=== PATIENT | male | born 1965 | race Caucasian/White ===

== ENCOUNTER 2022-09-21 11:12 | Outpatient (REF) | payer OTHER, SELFPAY ==
[2022-09-21 13:56] LABS: Hematocrit 43.4 % (42.0-52.0); Hemoglobin 15.4 g/dl (14.0-18.0); Lymphocytes Absolute Auto 2.3 X10*3/uL (1.2-4.9); Lymphocytes Percent Auto 65.3 % (20-40); MANUAL DIFF FLAG SCAN; Mean Corpuscular HGB Conc 35.5 g/dl (31.0-36.0); Mean Corpuscular Hemoglobin 34.4 pg (27.0-33.0); Mean Corpuscular Volume 96.9 fL (80.0-98.0); Mean Platelet Volume 10.5 fL (9.4-12.4); Monocytes Absolute Auto 0.5 X10*3/uL (0.1-1.2); Monocytes Percent Auto 13.8 % (2-11); Neutrophils Absolute Auto 0.7 x10*3/uL (2.0-8.3); Neutrophils Percent Auto 20.9 % (45-73); Platelet Count 181 X10*3/uL (160-400); Red Blood Count 4.48 X10*6/uL (4.60-5.80); Red Cell Distribution Width 12.1 % (11.0-16.0); SCAN SMEAR FLAG 1; White Blood Count 3.5 X10*3/uL (4.8-10.8)
[2022-09-21 14:18] LABS: SLIDE REVIEW VERIFIED
[2022-09-21 14:22] LABS: Alanine Aminotransferase 39 U/L (0-40); Albumin Level 4.5 g/dL (3.5-5.0); Alkaline Phosphatase 53 U/L (39-117); Anion Gap 15 (12-20); Aspartate Amino Transferase 31 U/L (5-37); Bilirubin Total 1.4 mg/dL (0.0-1.0); Blood Urea Nitrogen 11 mg/dL (9-16); Calcium 9.6 mg/dL (8.4-10.2); Carbon Dioxide 25 mmol/L (22-29); Chloride 105 mmol/L (96-108); Cholesterol 309 mg/dL; Estimated Glomerular Filt Rate > 60; Glucose Fasting 104 mg/dL (60-99); HDL Cholesterol 69 mg/dL; LDL Cholesterol Calculated 211 mg/dl; Potassium 5.1 mmol/L (3.3-5.1); Sodium 140 mmol/L (135-145); Total Protein 6.7 g/dL (6.5-8.0); Triglycerides 148 mg/dL
[2022-09-21 14:38] LABS: Free T4 (Free Thyroxine) 1.06 ng/dL (0.71-1.85); Prostate Specific Antigen 1.32 ng/mL (<0.05-4.0); Thyroid Stimulating Hormone 1.11 uIU/mL (0.32-4.0)
== END 2022-09-21 11:13 | disposition home or self-care (01) ==
LOC: HO.HMGCLDS 11:12
PROVIDERS: PCP Internal Medicine; Visit Provider Internal Medicine
DX: Z00.00 Encounter for general adult medical examination without abnormal findings (principal); Z12.5 Encounter for screening for malignant neoplasm of prostate
CPT/HCPCS: 36415; 80053; 80061; 84153; 84439; 84443; 85025

== ENCOUNTER → 2022-09-27 07:56 | Outpatient (BNVA) | payer OTHER, SELFPAY | PROVIDERS: PCP Internal Medicine; Referring Provider Internal Medicine; Visit Provider Internal Medicine | DX: I49.3 Ventricular premature depolarization (principal) | CPT/HCPCS: 93005 ==

== ENCOUNTER → 2022-10-11 07:45 | Outpatient (REF) | payer OTHER, SELFPAY ==
--- NOTE | ~2022-10-11 | NM_ITS ---
EXERCISE MYOCARDIAL PERFUSION STUDY INDICATION: PVCs, assess for coronary disease and ischemia TECHNIQUE: The patient was brought in for an exercise perfusion study on 10/11/2022. Patient performed exercise as per Talat protocol and was injected 35 mCi of sestamibi once target heart rate was achieved. Images were obtained using the SPECT gamma camera interlaced with the gating device. Images were obtained in supine position. Resting perfusion study was performed on 10/13/2022. Patient was administered 35 mCi of sestamibi intravenously at rest. Images were then obtained in supine position. Total DLP 104mGy-cm. Images were processed with the software and compared side to side in short axis, horizontal long axis and vertical long axis views. FINDINGS: Raw images were reviewed. The stress perfusion study showed diminished tracer uptake in the basal part of inferior, inferior septal wall. There is improvement with CT attenuation correction suggestive of diaphragmatic attenuation artifact. The gated study shows normal LV systolic function with calculated LVEF of 64%. LV cavity is normal in size. The gated study shows normal wall thickening and contraction of segments. Resting study shows diminished tracer uptake in the basal part of inferior, inferior septal wall. There is improvement with CT attenuation correction suggestive of diaphragmatic attenuation artifact. Gating at rest reveals normal wall motion with ejection fraction at 51%. The findings are consistent with fixed basal inferior defect, probably from diaphragmatic attenuation artifact. No reversible defects. CO/NM cardiolite stress test IMPRESSION: 1. Myocardial perfusion imaging study shows no clear evidence of any ischemia or infarction. Likely normal myocardial perfusion. 2. Gated LVEF is 64% during stress and 51% during rest. 3. Transient ischemic dilatation not present. EKG component of the test reported separately.
--- NOTE | 2022-10-11 07:50 | CA_ITS ---
Transthoracic Echocardiogram Patient (Last, First, Middle): Heriberto Knox, Gender: Male Date of : 1965 Age: 56 Procedure Date: 10/11/2022 Procedure Type: Transthoracic Echocardiogram Location: OP Height: 177.8 cm Weight: 97.52 kg BSA: 2.15 m2 Heart Rate: 95 bpm BP: 148 / 80 mmHg Counterintelligence Agent: SB Referring MD: Manny Shaw MD Specialized Developer: Vignesh Khanna MD Symptoms: I49.3 - Ventricular premature depolarization Study Quality: Adequate ECG Rhythm: Bigeminy Conclusions: - 1. Normal LV systolic function with grade 1 diastolic dysfunction 2. Mildly dilated left atrium 3. Normal cardiac valvular Dopplers 4. Mildly dilated ascending aorta at 3.9 cm 5. Normal RV systolic pressure 6. No gross pericardial effusion Findings Left Ventricle Normal left ventricular size, thickness, and systolic function. The visually estimated ejection fraction is between 60-65%. There is no evidence of regional wall motion abnormalities. Spectral Doppler is indicative of an impaired relaxation filling pattern. E/E prime ratio is <8, consistent with normal filling pressures. Evidence suggests grade I (mild) diastolic dysfunction. Right Ventricle Normal right ventricular cavity size and systolic function. Atria The left atrium is mildly dilated. There is no evidence of interatrial shunt. The right atrium is normal in size. Aortic Valve The aortic valve structure and function is likely normal. There is no aortic valve stenosis. There is no aortic valve regurgitation. Mitral Valve There is mild anterior and posterior mitral leaflet thickening. There is trace mitral valve regurgitation. There is no mitral valve stenosis. Pulmonic Valve The pulmonic valve was not well visualized. Tricuspid Valve Normal tricuspid valve structure. There is trace tricuspid valve regurgitation. The right ventricular systolic pressure is normal. The right ventricular systolic pressure is 28 mmHg. Normal right atrial pressure. There is no evidence of pulmonary hypertension. Great Vessels The pulmonary artery was not well visualized. There is mild dilatation of the ascending aorta measuring 3.90 cm. Venous The inferior vena cava is normal in size and collapses greater than 50% with inspiration. Pericardium/Pleural There is no evidence of pericardial effusion. Prior Study Comparison No prior study available for comparison. Measurements 2D Linear Measurements IVSd: 1.11 0.6-0.9/0.6-1.0 cm LVIDd: 6.09 3.9-5.3/4.2-5.9 cm LVIDd Index: 2.83 2.4-3.2/2.2-3.1 cm/m2 LVIDs: 3.78 2.0-3.6 cm LVPWd: 0.93 0.7-1.1 cm LA Diam: 5.20 2.7-3.8/3.0-4.0 cm LAIDs Index: 2.42 1.5-2.3 cm/m2 LV Mass: 324.17 67-162/88-224 g LV Mass Index: 150.78 43-95/49-115 g/m2 LVOT Diam: 2.50 3.0+(-)1.3 cm 2D Systolic Function EF 4C: 63.20 >55% EF 2C: 66.90 >55% EF BiP: 66.60 >55% Mitral Valve MV Pk E: 0.56 MV PK A: 0.53 MV Decel Time: 266.00 E/A: 1.10 E'Lateral: 12.00 E'Medial: 5.87 E/E' Med: 9.50 E/E' Lat: 4.60 PHT: 78.00 MVA PHT: 2.82 Decel Comal: 2.09 Aortic Valve AoV Pk Toni: 1.95 AoV Pk Grad: 15.00 GABRIELA: 4.61 LVOT LVOT Pk Toni: 1.83 LVOT Mn Toni: 1.09 LVOT VTI: 0.34 LVOT Pk Grad: 13.00 LVOT Mn Grad: 6.00 LVOT Diam: 2.50 LVOT Area: 4.91 Diastolic Function MV Pk E: 0.56 MV Pk A: 0.53 E/A: 1.10 E'Medial: 5.87 E/E' Med: 9.50 E' Laterial: 12.00 E/E' Lat: 4.60 Right Ventricle TAPSE (mm): 29.50 TVS' Toni: 18.00 Tricuspid Valve TR Pk Toni: 2.51 TR Pk Grad: 25.00 RA Press: 3.00 RVSP: 28.00 Great Vessels Aorta Sinus of Valsalva: 4.10 2.0-3.5 cm Ao Asc: 3.90 2.1-3.4 cm Pulmonary Valve PV Pk Toni: 1.70 Peak PV Grad: 12.00 Updated in Other Vendor System with Status of Final Vignesh Khanna MD electronically signed on 10/11/2022 11:44:03 AM with status of Final
--- NOTE | 2022-10-11 07:50 | CA_ITS ---
Acquisition Time: 2022-10-11 08:40:07 Total Exercise Time: 00:06:38 Test Indications: ABN EKG Medications: SEE CHART Protocol: VINH Max HR: 136 BPM 82% of Pred: 165 BPM Max BP: 280/084 mmHG Max Work Load: 7.9 METS Exercise stress test using Vinh protocol total of 6 min 38 sec, METS 7.80, TAPHR up to 82 %. Pt tolerated well, denies any SOB or CP. EKG with frequent PVC's no ischemic changes seen, nuclear images to follow. Hypertensive response to exercise. Test reviewed with Dr. Khanna. Referred By: Manny Shaw Overread By: Kassi Baird NP
== END ==
LOC: HO.CARD 07:45
PROVIDERS: PCP Internal Medicine; Visit Provider Internal Medicine
DX: I49.3 Ventricular premature depolarization (principal)
CPT/HCPCS: 78452; 93017; 93306; A9500

== ENCOUNTER → 2022-10-19 06:51 | Outpatient (REF) | payer OTHER, SELFPAY ==
--- NOTE | 2022-10-19 06:54 | HM_ITS ---
Conclusion: 1. Patient was monitored for total period of 2 days and 22 hours 2. Baseline was normal sinus rhythm with average heart of 69 beats per minute 3. No significant pauses noted 4. Total of 59,949 PVCs accounting for 22% total beats account for frequent PVCs 5. Total of 16 nonsustained ventricular tachycardia episodes noted with longest lasting 10 beats consistent with accelerated idioventricular rhythm 6. No patient reported symptoms MTDD
== END ==
LOC: HO.CARD 06:51
PROVIDERS: PCP Internal Medicine; Visit Provider Internal Medicine
DX: I49.3 Ventricular premature depolarization (principal)
CPT/HCPCS: 93242

== ENCOUNTER → 2022-11-02 10:39 | Outpatient (REF) | payer OTHER, SELFPAY | LOC: HO.SL 10:39 | PROVIDERS: Visit Provider Internal Medicine | DX: G47.33 Obstructive sleep apnea (adult) (pediatric) (principal); I49.3 Ventricular premature depolarization | CPT/HCPCS: 95806 ==

== ENCOUNTER → 2022-12-06 08:24 | Outpatient (BNVA) | payer OTHER, SELFPAY | PROVIDERS: PCP Internal Medicine; Referring Provider Internal Medicine; Visit Provider Internal Medicine | DX: Z13.89 Encounter for screening for other disorder (principal) ==

== ENCOUNTER 2023-04-13 09:45 | Outpatient (AMB) | payer OTHER, SELFPAY ==
[2023-04-13 10:02] VITALS: BP 162/84; PULSE 70; O2SAT 94; BMI 28.8
--- NOTE | 2023-04-13 10:02 | MHC.OFFVIS ---
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 He has been moderately obese for the past few years. Has had loud snoring at night, enough to disturb his , more so in the past 1 year. He used to sleep , throughout the night but waking up unrefreshed and tired during the daytime. He also has had cardiac arrhythmias in the past year and the sleep study was actually ordered by his carbon electrodes supervisor Dr. Shaw. The home-based sleep study on 11/02/2022 showed mom moderate to severe obstructive sleep apnea, And patient was supposed to go on CPAP therapy. Since then he has try to lose weight and is has successfully lost about 20 lbs. In the meantime since last month he had accidental injury to the right knee, with torn ligament. He underwent knee surgery, postoperatively had DVT in right lower extremity. He is now on anti coagulation, still on right knee immobilizer. His earlier appointment to see me was postpone because of the above events related to his right lower extremity. He claims that his sleep is somewhat better since he lost weight, and according to his his snoring has decreased. He is being treated for hypertension and hyperlipidemia. And as noted above he has been on anticoagulation recently for DVT right lower extremity. HE IS PAST SMOKER FOR ABOUT 15 YEARS BUT QUIT IN 2016. ON LICENSE OF [facility] Medical History (Updated 04/13/23 @ 12:13 by Gia Mauricio MD) Essential hypertension Hyperlipidemia, unspecified Obesity SANTO (obstructive sleep apnea) Retrognathia Surgical History No pertinent past surgical history Family History Mother No problems noted. Father ALS (amyotrophic lateral sclerosis) Social History Alcohol intake: current Alcohol intake frequency: a few times a week Alcohol type: beer and wine Patient Tobacco Use Status: Former Tobacco user Quit Date: 2015 Years Smoked: 15 +/- Review of Systems Const All systems reviewed & are unremarkable except as noted in HPI and below Reports snoring (Loud) Eyes Reports no additional complaints ENT Reports no additional complaints Card Denies chest pain and Reports irregular heart rhythm Resp Reports no additional complaints and Reports snoring (Loud) Reports no additional complaints Musc Reports other (Right lower extremity in brace, swollen) Skin/Breast Reports system reviewed and no additional complaints, except as documented Neuro Reports no additional complaints Psych Reports no additional complaints Endo Reports no additional complaints Yaya/Lymph Reports no additional complaints Aller/Immun Reports no additional complaints Physical Exam Vital Signs: Last Vital Signs Pulse 70 04/13/23 10:02 BP 162/84 H 04/13/23 10:02 Pulse Ox 94 04/13/23 10:02 Oxygen Delivery Method Room Air 04/13/23 10:02 BMI result Body Mass Index 28.8 AT PRESENT HE IS ONLY SLIGHTLY OBESE. Const General: healthy appearing, comfortable, no acute distress, alert and awake Orientation/consciousness: patient oriented x3 HEENT Other: RETROGANTHIA OF THE LOWER JAW IS NOTED Head: Yes normal to inspection General nose exam: No nasal polyps present and No nasal discharge present Face and sinus: Yes sinuses nontender Mouth: oropharynx abnormals (MODERATELY NARROW AND CROWDED, MALLAMPATI CLASS 3) Throat: Yes posterior oropharynx normal Eyes General: appearance normal, both eyes and all related structures Neck Neck: Yes normal visual inspection, Yes no lymphadenopathy, Yes trachea midline and Yes no JVD Thyroid: Thyroid normal Chest Chest palpation & inspection: normal inspection of the chest, normal palpation of entire chest wall and no tenderness Resp Effort & Inspection: normal respiratory effort Auscultation: clear to auscultation bilaterally, no crackles and no wheezes Cardio Palpation: normal PMI Rate: regular rate Rhythm: regular rhythm Heart sounds: no gallops and no murmurs Peripheral pulses: Peripheral pulses 2+ throughout GI Palpation (GI): Soft to palpation, nontender, No hepatosplenomegaly present and no masses Auscultation: normal bowel sounds Back/Spine/Pelvis Thoracic/Lumbar Spine: thoracic and lumbar spine normal to inspection Skin General skin exam: no rashes or lesions noted Neuro General: patient oriented x3 and no focal motor deficits Cranial nerves: Yes CN's II-XII intact bilaterally Extrem Other: RIGHT LOWER EXTREMITY IS MODERATELY SWOLLEN AND HE HAS KNEE IMMOBILIZER ON, General: Yes normal to inspection and Yes no clubbing, cyanosis or edema Psych Appearance: grossly normal and well kempt Speech and movement: Normal speech and movement present Results Reviewed Results Reviewed: RESULTS OF HOME-BASED SLEEP STUDY ON 11/02/2022 REVIEWED. TOTAL SLEEP TIME AHI 20.3 SUPINE POSITION AHI 35.7 LATERAL POSITION AHI 8.7 SNORING FOR 9.3% OF THE SLEEP TIME. O2 SAT BELOW 88% FOR 13 MINUTES Assessment & Plan Assessment & Plan (1) Obesity: Comment: THIS GENTLEMAN DID HAVE MODERATE OBESITY BUT HE HAS SUCCESSFULLY LOST ABOUT 20 LB OF WEIGHT IN THE LAST 4 MONTHS. 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 THIS IS A STRONG CONTRIBUTING FACTOR FOR HIS OBSTRUCTIVE SLEEP APNEA. EVEN THOUGH HE HAS LOST WEIGHT I I THINK HE IS GOING TO CONTINUE TO SLEEP APNEA BECAUSE OF THIS DEFORMITY . Code(s): M26.19 - Other specified anomalies of jaw-cranial base relationship (3) SANTO (obstructive sleep apnea): Comment: PER SLEEP STUDY HE DOES HAVE EVIDENCE OF MODERATE TO SEVERE OBSTRUCTIVE SLEEP APNEA. EVEN THOUGH HE HAS LOST SAYS SOME WEIGHT, I THINK HE IS EXPECTED TO CONTINUE HAVING SLEEP APNEA, THOUGH THE SEVERITY MAY HAVE DECREASED. TREATMENT OPTIONS DISCUSSED . 1- HE COULD LOSE MORE WEIGHT, AND THEN WE REPEAT A HOME-BASED SLEEP STUDY TO SEE IF HE STILL HAS SIGNIFICANT RESIDUAL SLEEP APNEA OR NOT. 2- I THINK THAT HE WILL CONTINUE TO HAVE SOME DEGREE OF SLEEP APNEA BECAUSE OF RETROGANTHIS OF THE LOWER JAW, AND IN VIEW OF HIS HISTORY OF CARDIAC ARRHYTHMIAS, HE IS BETTER OF STARTING ON THE CPAP, AND WHEN HE LOSES MORE WEIGHT WE CAN ALWAYS DO ANOTHER HOME-BASED SLEEP STUDY. AFTER FULL DISCUSSION, HE IS AGREEABLE TO START ON CPAP THERAPY. CPAP WITH AUTO PAP MODE AND PRESSURE SETTING 6-16 CM IS ORDERED, MAY START WITH NASAL INTERFACE BUT HE MAY NEED A FULL FACE INTERFACE. HE IS INSTRUCTED TO USE THE HUMIDIFICATION WELL. WILL BE SEEN BACK IN 2 MONTHS TO MONITOR HIS COMPLIANCE AND BENEFITS. Code(s): G47.33 - Obstructive sleep apnea (adult) (pediatric) Coding Level of Care Code New Pt Level 4 (65864) Diagnoses Obesity E66.9 Retrognathia M26.19 SANTO (obstructive sleep apnea) G47.33
== END 2023-04-13 10:45 | disposition home or self-care (01) ==
PROVIDERS: PCP Internal Medicine; Visit Provider Internal Medicine
DX: E66.9 Obesity, unspecified (principal); M26.19 Other specified anomalies of jaw-cranial base relationship; G47.33 Obstructive sleep apnea (adult) (pediatric)
CPT/HCPCS: 99204

== ENCOUNTER → 2023-04-13 09:45 | Outpatient (BNVA) | payer OTHER, SELFPAY | PROVIDERS: PCP Internal Medicine; Visit Provider Internal Medicine ==

== ENCOUNTER → 2023-05-25 12:45 | Outpatient (REF) | payer OTHER, SELFPAY ==
--- NOTE | 2023-05-25 12:48 | HM_ITS ---
* Total monitoring time about 3 days. * Underlying rhythm is sinus. Average ventricular rate 70/Min. Range 49 to 108/Min. * Frequent ventricular ectopy with a burden of 7%. Rare couplets, bigeminy, trigeminy. No significant runs. * No significant pauses or AV blocks. * No patient markers or events in diary. MTDD
== END ==
LOC: HO.CARD 12:45
PROVIDERS: PCP Internal Medicine; Visit Provider Internal Medicine
DX: I49.3 Ventricular premature depolarization (principal)
CPT/HCPCS: 93242

== ENCOUNTER → 2023-05-25 12:48 | Outpatient (BNV) | payer OTHER, SELFPAY | PROVIDERS: PCP Internal Medicine; Visit Provider Internal Medicine | DX: I47.10 Supraventricular tachycardia, unspecified (principal) | CPT/HCPCS: 93244 ==

== ENCOUNTER 2023-06-14 08:00 | Outpatient (AMB) | payer OTHER, SELFPAY ==
[2023-06-14 08:25] VITALS: BP 142/90; PULSE 92; BMI 31.6
--- NOTE | 2023-06-14 08:25 | A.OFFVIS_ITS ---
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 Intake Note: 6 month follow up Before School Required: No Accompanied by: Self / Same As Patient Allergies No Known Allergies Allergy (Verified 06/14/23 08:26) Medication List - Last Reconciled 06/14/23 by Manny Shaw MD apixaban (Eliquis) 5 mg PO BID atorvastatin 10 mg PO BEDTIME diltiazem HCl 120 mg PO DAILY omeprazole 20 mg PO DAILY HPI HPI Comments History of Present Illness Details Heriberto returns for follow-up regarding PVCs. Overall, does not really have any clear-cut symptoms. Generally feeling okay. No angina or shortness of breath or palpitations. He got diagnosed with obstructive sleep apnea but not able to use CPAP as he states it is very inconvenient. [facility] Medical History (Updated 06/14/23 @ 08:51 by Manny Shaw MD) Retrognathia Obesity SANTO (obstructive sleep apnea) Hyperlipidemia, unspecified Essential hypertension Surgical History (Updated 06/14/23 @ 08:27 by Tamar Triplett) H/O right knee surgery Family History Mother No problems noted. Father ALS (amyotrophic lateral sclerosis) Social History Alcohol intake: current Alcohol intake frequency: a few times a week Alcohol type: beer and wine Patient Tobacco Use Status: Former Tobacco user Quit Date: 2015 Years Smoked: 15 +/- Review of Systems Const Denies weakness ENT Denies dizziness Card Denies chest pain, Denies chest pain with activity, Denies syncope, Denies rapid heart rate, Denies pedal edema, Denies edema, Denies leg edema, Denies lightheadedness, Denies palpitations, Denies dyspnea, Denies dyspnea on exertion and Denies orthopnea Resp Denies cough, Denies dyspnea and Denies dyspnea on exertion GI Denies hematochezia and Denies change in stool character Musc Denies abnormal gait, Denies muscle cramps, Denies muscle weakness, Denies numbness, Denies radiating pain into limb and Denies tingling Neuro Denies abnormal gait, Denies dizziness, Denies syncope, Denies numbness, Denies tingling and Denies weakness Endo Denies palpitations Physical Exam Vital Signs: Last Vital Signs Pulse 92 06/14/23 08:25 BP 142/90 H 06/14/23 08:25 BMI result Body Mass Index 31.6 Const General: comfortable and no acute distress Orientation/consciousness: patient oriented x3 HEENT Other: Unremarkable Head: Yes normal to inspection Neck Neck: Yes normal visual inspection Chest Chest palpation & inspection: normal inspection of the chest Resp Auscultation: clear to auscultation bilaterally Cardio Palpation: normal PMI Heart sounds: S1 normal heart sound present, S2 normal heart sound present, no gallops, no murmurs and no rubs GI Palpation (GI): Soft to palpation Back/Spine/Pelvis Other: unremarkable Skin General skin exam: no rashes or lesions noted Neuro General: patient oriented x3 Extrem General: Yes normal to inspection Psych Mental Status: mental status grossly normal Assessment & Plan Assessment & Plan (1) PVC (premature ventricular contraction): Code(s): I49.3 - Ventricular premature depolarization Plan: EKG with PVCs. Echocardiogram with preserved LVEF. Holter shows underlying sinus rhythm with an average rate of 69/Min. Frequent PVCs with a burden of 22%. Brief runs of NSVT. Most recently repeated and shows a PVC burden of 7%. In the stress test, reached 7.9 Mets. No cardiac symptoms. PVCs still noted, but some improvement. Perfusion component was unremarkable. Etiology for this could be some combination of weight as well as obstructive sleep apnea. Continue to lose weight and try the CPAP mask again. Continue diltiazem. (2) Essential hypertension: Code(s): I10 - Essential (primary) hypertension Plan: Borderline blood pressures. Losing weight would hopefully help. (3) SANTO (obstructive sleep apnea): Code(s): G47.33 - Obstructive sleep apnea (adult) (pediatric) Plan: Home sleep study shows moderately severe obstructive sleep apnea. He states he tried the CPAP mask but finds it very inconvenient. This is probably contributing a lot to the PVCs. Discussed. Coding Level of Care Code Est Pt Level 4 (47718) Diagnoses PVC (premature ventricular contraction) I49.3 Essential hypertension I10 SANTO (obstructive sleep apnea) G47.33
== END 2023-06-14 08:46 | disposition home or self-care (01) ==
PROVIDERS: Visit Provider Internal Medicine
DX: I49.3 Ventricular premature depolarization (principal); I10 Essential (primary) hypertension; G47.33 Obstructive sleep apnea (adult) (pediatric)
CPT/HCPCS: 99214

== ENCOUNTER → 2023-06-14 08:00 | Outpatient (BNVA) | payer OTHER, SELFPAY | PROVIDERS: Visit Provider Internal Medicine ==

== ENCOUNTER 2023-06-22 06:26 | Outpatient (REF) | payer OTHER, SELFPAY ==
[2023-06-22 11:33] LABS: Eosinophils Percent Auto 0.7 % (0-4); Hematocrit 44.2 % (42.0-52.0); Hemoglobin 15.1 g/dl (14.0-18.0); Lymphocytes Percent Auto 69.9 % (20-40); MANUAL DIFF FLAG SCAN; Mean Corpuscular HGB Conc 34.2 g/dl (31.0-36.0); Mean Corpuscular Hemoglobin 34.6 pg (27.0-33.0); Mean Corpuscular Volume 101.1 fL (80.0-98.0); Mean Platelet Volume 10.1 fL (9.4-12.4); Monocytes Absolute Auto 0.5 X10*3/uL (0.1-1.2); Monocytes Percent Auto 17.6 % (2-11); Neutrophils Absolute Auto 0.3 x10*3/uL (2.0-8.3); Neutrophils Percent Auto 11.8 % (45-73); Platelet Count 186 X10*3/uL (160-400); Red Blood Count 4.37 X10*6/uL (4.60-5.80); Red Cell Distribution Width 11.8 % (11.0-16.0); SCAN SMEAR FLAG 1; White Blood Count 2.8 X10*3/uL (4.8-10.8)
[2023-06-22 11:54] LABS: SLIDE REVIEW VERIFIED
[2023-06-22 12:01] LABS: Alanine Aminotransferase 169 U/L (0-40); Albumin Level 4.4 g/dL (3.5-5.0); Alkaline Phosphatase 78 U/L (39-117); Anion Gap 15 (12-20); Aspartate Amino Transferase 113 U/L (5-37); Bilirubin Total 0.7 mg/dL (0.0-1.0); Blood Urea Nitrogen 8 mg/dL (9-16); Calcium 9.3 mg/dL (8.4-10.2); Carbon Dioxide 24 mmol/L (22-29); Chloride 108 mmol/L (96-108); Estimated Glomerular Filt Rate > 60; Glucose Random 99 mg/dL (60-115); Sodium 143 mmol/L (135-145); Total Protein 7.1 g/dL (6.5-8.0)
== END 2023-06-22 06:27 | disposition home or self-care (01) ==
LOC: HO.HMGCLDS 06:26
PROVIDERS: PCP Internal Medicine; Visit Provider Internal Medicine
DX: I10 Essential (primary) hypertension (principal); K21.9 Gastro-esophageal reflux disease without esophagitis; E78.00 Pure hypercholesterolemia, unspecified; Z86.718 Personal history of other venous thrombosis and embolism
CPT/HCPCS: 36415; 80053; 85025

== ENCOUNTER 2023-08-03 10:02 | Outpatient (AMB) | payer OTHER, SELFPAY ==
--- NOTE | 2023-08-03 10:13 | A.OFFVIS_ITS ---
Intake Vital Signs 08/03/23 10:14 Height 5 ft 9 in Weight 213 lb BMI 31.5 BP 130/82 Blood Pressure Location Lt brachial Position Sitting Pulse 77 Pulse Source Pulse Oximeter Pulse Oximetry (%) 98 Oxygen Delivery Method Room Air Intake Visit Reasons: Obstructive sleep apnea Intake Note: pt is here for follow up and states he returned cpap, maintaining weight loss, snoring is less only once in a great while. Molder Foam Rubber Required: No Allergies No Known Allergies Allergy (Verified 08/03/23 10:22) Medication List - Last Reconciled 08/03/23 by Gia Mauricio MD apixaban (Eliquis) 5 mg PO BID atorvastatin 10 mg PO BEDTIME diltiazem HCl 120 mg PO DAILY omeprazole 20 mg PO DAILY Do you need a note to return to daycare/school/sports/work: No HPI Obstructive sleep apnea HPI Details 57 YEARS OLD GENTLEMAN WITH HISTORY OF O BSTRUCTIVE SLEEP APNEA, SECONDARY TO MILD OBESITY AND ALSO CONTRIBUTED BYRETROGANTHIA OF THE LOWER JAW. AFTER RECENT SLEEP STUDY HE WAS PROVIDED WITH THIS CPAP DEVICE. HE USED IT ONLY FOR 1 NIGHT AND THEN DECIDED NOT TO USE. HE JUST DID NOT FEEL COMFORTABLE WITH THE MASK AND COULD NOT SLEEP. NOW HE IS TRYING TO SLEEP IN LATERAL POSITION , AND LOSING SOME WEIGHT. HE CLAIMS THAT HE SLEEPS WELL AT LEAST FOR 6-7 HOURS EVERY NIGHT. HE WAKES UP REFRESHED AND DOES NOT HAVE ANY DAYTIME SLEEPINESS. HE IS DETERMINED TO TREAT HIMSELF WITH CONSERVATIVE MEASURES. [facility] Medical History Retrognathia Obesity SANTO (obstructive sleep apnea) Hyperlipidemia, unspecified Essential hypertension Surgical History H/O right knee surgery Family History Mother No problems noted. Father ALS (amyotrophic lateral sclerosis) Social History Alcohol intake: current Alcohol intake frequency: a few times a week Alcohol type: beer and wine Patient Tobacco Use Status: Former Tobacco user Quit Date: 2015 Years Smoked: 15 +/- Non Cigarette Tobacco use Quit date or years: 2005 Review of Systems Const All systems reviewed & are unremarkable except as noted in HPI and below Reports snoring (Loud) Eyes Reports no additional complaints ENT Reports no additional complaints Card Denies chest pain and Reports irregular heart rhythm Resp Reports no additional complaints and Reports snoring (Loud) Reports no additional complaints Musc Reports other (Right lower extremity in brace, swollen) Skin/Breast Reports system reviewed and no additional complaints, except as documented Neuro Reports no additional complaints Psych Reports no additional complaints Endo Reports no additional complaints Yaya/Lymph Reports no additional complaints Aller/Immun Reports no additional complaints Physical Exam Vital Signs: Last Vital Signs Pulse 77 08/03/23 10:14 BP 130/82 08/03/23 10:14 Pulse Ox 98 08/03/23 10:14 Oxygen Delivery Method Room Air 08/03/23 10:14 BMI result Body Mass Index 31.5 AT PRESENT HE IS ONLY SLIGHTLY OBESE. Const General: healthy appearing, comfortable, no acute distress, alert and awake Orientation/consciousness: patient oriented x3 HEENT Other: RETROGANTHIA OF THE LOWER JAW IS NOTED Head: Yes normal to inspection General nose exam: No nasal polyps present and No nasal discharge present Face and sinus: Yes sinuses nontender Mouth: oropharynx abnormals (MODERATELY NARROW AND CROWDED, MALLAMPATI CLASS 3) Throat: Yes posterior oropharynx normal Eyes General: appearance normal, both eyes and all related structures Neck Neck: Yes normal visual inspection, Yes no lymphadenopathy, Yes trachea midline and Yes no JVD Thyroid: Thyroid normal Chest Chest palpation & inspection: normal inspection of the chest, normal palpation of entire chest wall and no tenderness Resp Effort & Inspection: normal respiratory effort Auscultation: clear to auscultation bilaterally, no crackles and no wheezes Cardio Palpation: normal PMI Rate: regular rate Rhythm: regular rhythm Heart sounds: no gallops and no murmurs Peripheral pulses: Peripheral pulses 2+ throughout GI Palpation (GI): Soft to palpation, nontender, No hepatosplenomegaly present and no masses Auscultation: normal bowel sounds Back/Spine/Pelvis Thoracic/Lumbar Spine: thoracic and lumbar spine normal to inspection Skin General skin exam: no rashes or lesions noted Neuro General: patient oriented x3 and no focal motor deficits Cranial nerves: Yes CN's II-XII intact bilaterally Extrem Other: RIGHT LOWER EXTREMITY IS MODERATELY SWOLLEN AND HE HAS KNEE IMMOBILIZER ON, General: Yes normal to inspection and Yes no clubbing, cyanosis or edema Psych Appearance: grossly normal and well kempt Speech and movement: Normal speech and movement present Results Reviewed Results Reviewed: HE TRY TO USE CPAP BUT USED IT ONLY FOR 1 NIGHT AND THEN DECIDED NOT TO USE. 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 THIS IS A STRONG CONTRIBUTING FACTOR FOR HIS OBSTRUCTIVE SLEEP APNEA. Code(s): M26.19 - Other specified anomalies of jaw-cranial base relationship Plan: DISCUSSED WITH THE PATIENT AND HE IS FULLY AWARE OF THIS DEFECT. (2) Obesity: Comment: THIS GENTLEMAN DID HAVE MODERATE OBESITY BUT HE HAS SUCCESSFULLY LOST ABOUT 20 LB OF WEIGHT IN THE LAST 4-6 MONTHS. Code(s): E66.9 - Obesity, unspecified Plan: ENCOURAGED TO LOSE ANOTHER 10 LB OF WEIGHT (3) SANTO (obstructive sleep apnea): Comment: PATIENT DOES HAVE MODERATE DEGREE OF OBSTRUCTIVE SLEEP APNEA. HE IS NOT ABLE TO AND ALSO NOT INTERESTED IN USING CPAP. CURRENTLY WITH CONSERVATIVE MEASURES INCLUDING SLEEPING IN LATERAL POSITION AND ALSO SOME WEIGHT LOSS, HE IS DOING WELL. Code(s): G47.33 - Obstructive sleep apnea (adult) (pediatric) Plan: ADVISED TO CONTINUE LOSING A FEW LB OF WEIGHT AT A TIME, AND ALWAYS SLEEP IN LATERAL POSITION. WILL CHECK HIM ON A YEARLY BASIS, AND IF SYMPTOMS GET ANY WORSE THEN WILL CONSIDER ALTERNATE MODES OF TREATMENT. PATIENT IS WELL EDUCATED. Coding Level of Care Code Est Pt Level 3 (15109) Diagnoses Retrognathia M26.19 Obesity E66.9 SANTO (obstructive sleep apnea) G47.33
[2023-08-03 10:14] VITALS: BP 130/82; PULSE 77; O2SAT 98; BMI 31.5
== END 2023-08-03 11:23 | disposition home or self-care (01) ==
PROVIDERS: PCP Internal Medicine; Visit Provider Internal Medicine
DX: M26.19 Other specified anomalies of jaw-cranial base relationship (principal); E66.9 Obesity, unspecified; G47.33 Obstructive sleep apnea (adult) (pediatric)
CPT/HCPCS: 99213

== ENCOUNTER → 2023-08-03 10:02 | Outpatient (BNVA) | payer OTHER, SELFPAY | PROVIDERS: PCP Internal Medicine; Visit Provider Internal Medicine ==

== ENCOUNTER 2024-06-05 07:49 | Outpatient (AMB) | payer OTHER, SELFPAY ==
--- NOTE | 2024-06-05 08:30 | MHC.OFFVIS ---
Vital Signs 06/05/24 08:31 Height 5 ft 9 in Weight 214 lb 11.684 oz BMI 31.7 BP 160/82 H Blood Pressure Location Lt brachial Position Sitting Pulse 72 Pulse Source Monitor Intake Visit Reasons: 1 yr f/up Robotic Technician Required: No Accompanied by: Self / Same As Patient Allergies No Known Allergies Allergy (Verified 08/03/23 10:22) Medication List - Last Reconciled 06/05/24 by Manny Shaw MD apixaban (Eliquis) 5 mg PO BID atorvastatin 10 mg PO BEDTIME diltiazem HCl CD 120 mg PO DAILY omeprazole 20 mg PO DAILY HPI Comments Details: Heriberto returns for follow-up regarding PVCs. Overall, he states he feels fine. No cardiac symptoms. No angina or in fact anything along those lines. With regard to social habits, he drinks daily and he believes it is excessive. Several beers almost daily. Also has obstructive sleep apnea but does not use CPAP mask. [facility] Medical History Retrognathia Obesity SANTO (obstructive sleep apnea) Hyperlipidemia, unspecified Essential hypertension Surgical History H/O right knee surgery Family History Mother No problems noted. Father ALS (amyotrophic lateral sclerosis) Social History Alcohol intake: current Alcohol intake frequency: a few times a week Alcohol type: beer and wine Patient Tobacco Use Status: Former Tobacco user Years Smoked: 15 +/- Review of Systems Const Denies chills, Denies fatigue, Denies fever(s), Denies frequent falls, Denies weakness, Denies weight gain and Denies weight loss ENT Denies dizziness Card Denies chest pain, Denies leg edema, Denies lightheadedness, Denies palpitations, Denies dyspnea and Denies dyspnea on exertion Resp Denies cough, Denies dyspnea and Denies dyspnea on exertion GI Denies hematochezia Musc Denies abnormal gait, Denies muscle weakness, Denies numbness, Denies radiating pain into limb and Denies tingling Neuro Denies abnormal gait, Denies dizziness, Denies frequent falls, Denies numbness, Denies tingling and Denies weakness Endo Denies fatigue and Denies palpitations Physical Exam Vital Signs: Last Vital Signs Pulse 72 06/05/24 08:31 BP 160/82 H 06/05/24 08:31 BMI result Body Mass Index 31.7 Const General: comfortable and no acute distress Orientation/consciousness: patient oriented x3 HEENT Other: Unremarkable Head: Yes normal to inspection Neck Neck: Yes normal visual inspection Chest Chest palpation & inspection: normal inspection of the chest Resp Auscultation: clear to auscultation bilaterally Cardio Palpation: normal PMI Heart sounds: S1 normal heart sound present, S2 normal heart sound present, no gallops, no murmurs and no rubs GI Palpation (GI): Soft to palpation Back/Spine/Pelvis Other: unremarkable Skin General skin exam: no rashes or lesions noted Neuro General: patient oriented x3 Extrem General: Yes normal to inspection Psych Mental Status: mental status grossly normal Office Procedures EKG Details: EKG with underlying sinus rhythm at 72/Min; rightward axis; no significant ST-T changes; [place]. [address]-[id number], Complete Assessment & Plan Assessment & Plan (1) PVC (premature ventricular contraction): Code(s): I49.3 - Ventricular premature depolarization Category: Medical Plan: EKG with PVCs. Echocardiogram with preserved LVEF. Holter shows underlying sinus rhythm with an average rate of 69/Min. Frequent PVCs with a burden of 22%. Brief runs of NSVT. Repeated and shows a PVC burden of 7%. In the stress test, reached 7.9 Mets. No cardiac symptoms. PVCs still noted, but some improvement. Perfusion component was unremarkable. Suspect this from some combination of weight, alcohol excess, obstructive sleep apnea. He remains on diltiazem. No changes. (2) Essential hypertension: Code(s): I10 - Essential (primary) hypertension Category: Medical Plan: Blood pressure is high today. However, he does smell of alcohol and additionally he states that home blood pressures only the 130s and he checks some few times a week. Hence no changes. (3) SANTO (obstructive sleep apnea): Code(s): G47.33 - Obstructive sleep apnea (adult) (pediatric) Category: Medical Plan: Home sleep study shows moderately severe obstructive sleep apnea. He states he cannot tolerate CPAP mask. (4) Alcohol abuse: Code(s): F10.10 - Alcohol abuse, uncomplicated Category: Social Hx Plan: Drinks daily. Last year, LFTs were abnormal. We can recheck his labs. Counseled about dangers from excessive alcohol use and he understands. Orders: Orders Comprehensive Met. Panel Today I49.3 - Ventricular premature depolarization Complete Blood Count no Diff Today I49.3 - Ventricular premature depolarization Coding Level of Care Code Est Pt Level 4 (62336) Diagnoses PVC (premature ventricular contraction) I49.3 Essential hypertension I10 SANTO (obstructive sleep apnea) G47.33 Alcohol abuse F10.10 CPT Codes EKG - CPT: 06514-Lfoizeglzgnaptate, Complete ([id number])
[2024-06-05 08:31] VITALS: BP 160/82; PULSE 72; BMI 31.7
== END 2024-06-05 08:56 | disposition home or self-care (01) ==
PROVIDERS: PCP Internal Medicine; Visit Provider Internal Medicine
DX: I49.3 Ventricular premature depolarization (principal); I10 Essential (primary) hypertension; G47.33 Obstructive sleep apnea (adult) (pediatric); F10.10 Alcohol abuse, uncomplicated
CPT/HCPCS: 93010; 99214

== ENCOUNTER → 2024-06-05 07:49 | Outpatient (BNVA) | payer OTHER, SELFPAY | PROVIDERS: PCP Internal Medicine; Visit Provider Internal Medicine | DX: I49.3 Ventricular premature depolarization (principal); I10 Essential (primary) hypertension; G47.33 Obstructive sleep apnea (adult) (pediatric); F10.10 Alcohol abuse, uncomplicated | CPT/HCPCS: 93005 ==

== ENCOUNTER 2024-08-28 06:27 | Day surgery (SDC) | payer OTHER, SELFPAY ==
--- OUTSIDE RECORDS SUMMARY | 2024-08-09 10:53 | XMS_ITS | Patient Health Record ---
Author Organization [facility] Address [address] [place] [address] Care Team Providers Care Film Reader Name Role Phone Greg Tomlin MD Primary Care Provider Gibson Bella Jr Unavailable [phone] ALLERGIES No Known Allergies REASON FOR REFERRAL No Information MEDICATIONS Medication SIG (Take, Route, Frequency, Duration) Notes Start Date End Date Status Omeprazole 20 MG Oral for 90 A ctive Atorvastatin Calcium 10 MG TAKE 1 TABLET BY MOUTH EVERY DAY Oral for 90 Active Eliquis 5 MG Oral for 90 Activ e dilTIAZem HCl ER Coated Beads 120 MG TAKE 1 CAPSULE BY MOUTH EVERY DAY Oral for 90 Active IMMUNIZATIONS Vaccine Route Administration Date Status Comme nts Influenza Unknown 05/09/2024 Refused SOCIAL HISTORY Tobacco Use: Social History Observation Description Date Details (start date - stop date) Never Smoker NA - NA Sex Assigned At : Social History Observation Description Sex Assigned At Unknown Tobacco Use/Smoking Question Answer Notes Patient is a nonsmoker Alcohol Screen Question Answer Notes Did you have a drink contain ing alcohol in the past year? Yes How often did you have a dri nk containing alcohol in the past year? 2 to 4 times a month (2 points) How many drinks did you have on a typical day when you were drinking in the past year? 3 or 4 drinks (1 point) How often did you have 6 or more drinks on one occasion in the past year? Never (0 point) Points 3 Interpretation Negative PROBLEMS Problem Type ICD Code Onset Dates Problem Status W/U Status Risk SNOMED Code Notes Problem Colon cancer screening (Z12.11) Active confirmed 301148920 Problem care home (current) use of anticoagulants (Z79.01) Active confirmed [id number] VITAL SIGNS Temperature 98.0 degrees Fahrenheit 05/09/2024 Blood pressure diastolic 00 mm Hg 05/09/2024 Height 5 ft 10 in in 05/09/2024 Blood pressure systolic 000 mm Hg 05/09/2024 Weight 213 lb 4 oz lbs 05/09/2024 BMI 30.59 kg/m2 05/09/2024 Encounters Encounter Location Date Provider Diagnosis [facility] [address] [place] [address] 10/19/2023 Gibson Crane Jr [facility] [address] [place] [address] 01/12/2024 Gibson Crane Jr [facility] [address] [place] [address] 05/09/2024 Gibson Crane Jr Colon cancer screening Z12.11 and care home (current) use of anticoagulants Z79.01 [facility] [address] [place] [address] 10/17/2023 Gibson Crane Jr ASSESSMENTS Encounter Date Diagnosis Assessment Notes Treatment Notes Treatment Clinical Notes 05/09/2024 Colon cancer screening (ICD-10 - Z12.11) 05/09/2024 wire roller (current) use of anticoagulants (ICD-10 - Z79.01) Colonoscopy material was printed PLAN OF TREATMENT Future Test Test Name Order Date COLONOSCOPY 05/09/2024 Next Appt Details Provider Name:Gibson sullivan Jr, 08/28/2024 07:30:00 AM, [address] [place] [address] , [place], [place], [phone], Insurance Providers Payer Name Payer Address Payer Phone Subscriber Number Group Number Insured Name Patient Relationship to Insured Coverage Start Date Coverage End Date [facility] ([place]) [address] [place] [id number] [phone] [id number] ESTRELLA SAWYER Self - patient is the insured MEDICAL (GENERAL) HISTORY Medical History History ICD Code Deep venous thrombosis Gastroesophageal reflux disease Hypertension Hyperlipidemia PVCs SANTO Surgical History Surgery Date(Month/Year) Right patellar tendon repair 2022 Hospitalization History Reason Date(Month/Year) DVT 03/06
--- OUTSIDE RECORDS SUMMARY | 2024-08-09 10:53 | XMS_ITS ---
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) use of anticoagulants (Z79.01) Active confirmed [id number] VITAL SIGNS BMI 30.59 kg/m2 05/09/2024 Blood pressure systolic 000 mm Hg 05/09/20 24 Blood pressure diastolic 00 mm Hg 024 Height 5 ft 10 in in 05/09/2024 Temperature 98.0 degrees Fahrenheit 05/09/20 Weight 213 lb 4 oz lbs 05/09/2024 Encounters Encounter Location Date Provider Diagnosis [facility] [address] [place] [address] 05/09/2024 Gibson Crane Jr Colon cancer screening Z12.11 and [facility] (current) use of anticoagulants Z79.01 ASSESSMENTS Encounter Date Diagnosis Assessment Notes Treatment Notes Treatment Clinical Notes 05/09/2024 Colon cancer screening (ICD-10 - Z12.11) 05/09/2024 [facility] (current) use of anticoagulants (ICD-10 - Z79.01) Colonoscopy material was printed PLAN OF TREATMENT Treatment Notes Assessment Notes cell plasterer (current) use of anticoagulant s Colonoscopy material was printed Future Test Test Name Order Date COLONOSCOPY 05/09/2024 Next Appt Details Follow Up: 1 Year, Reason: Provider Name:Gibson sullivan Jr, 08/28/2024 07:30:00 AM, [address] [place] [address] , [place], [place], [phone], Progress Notes * Examination Category Sub-Category Detail Notes General Examination GENERAL APPEARANCE: in no ac malu distress HEAD: normocephalic EYES: sclera non-icteric NECK/THYROID: no lymphadenopathy HEART: S1, S2 normal, no mu rmurs CHEST: normal shape and exp ansion LUNGS: clear to auscultatio n bilaterally ABDOMEN: soft, nontender, non distended, bowel sounds present, no organomegaly SKIN: anicteric EXTREMITIES: no clubbing, cyanosi s, or edema PSYCH: cognitive function i ntact ORAL CAVITY: mucosa moist
--- OUTSIDE RECORDS SUMMARY | 2024-08-09 10:53 | XMS_ITS ---
Author Organization [facility] Address [address] [place] [address] Care Team Providers Care Flag Maker Name Role Phone Greg Tomlin MD Primary Care Provider Gloria Crane Jr, Gibson Prajapati [phone] REASON FOR VISIT Patient presents today for discuss colonoscopy Encounters Encounter Location Date Provider Diagnosis [facility] [address] [place] [address] 01/12/2024 Gibson Crane Jr PLAN OF TREATMENT Next Appt Details Provider Name:Gibson sullivan Jr, 08/28/2024 07:30:00 AM, [address] [place] [address] , [place], [place], [phone],
--- OUTSIDE RECORDS SUMMARY | 2024-08-09 10:53 | XMS_ITS ---
Author Organization [facility] Address [address] [place] [address] Care Team Providers Care Sterile Supervisor Name Role Phone Greg Tomlin MD Primary Care Provider Gloria Crane Jr, Gibson Prajapati REASON FOR VISIT Patient presents today for a colon screening Encounters Encounter Location Date Provider Diagnosis [facility] [address] [place] [phone] 10/19/2023 Gibson Crane Jr PLAN OF TREATMENT Next Appt Details Provider Name:Gibson sullivan Jr, 08/28/2024 07:30:00 AM, [address] [place] [address] , [place], [place], [phone],
[2024-08-24 14:47] VITALS: BMI 30.6
[2024-08-24 15:01] VITALS: BMI 29.4
--- NOTE | 2024-08-27 09:51 | P.CONAN_ITS ---
Documented by User: Danna Davis NP 08/27/24 09:52 HPI - Anesthesia Eval Consult details Narrative: 58yo M for Colonoscopy Eliquis for hx DVT PMFSH Active Problems Active Problems: All Active Problems Alcohol abuse (Acute) PVC (premature ventricular contraction) (Acute) Retrognathia (Acute) Obesity (Acute) SANTO (obstructive sleep apnea) (Acute) Hyperlipidemia, unspecified (Acute) Essential hypertension (Acute) Past Medical History Medical History GERD (gastroesophageal reflux disease) Hx of deep venous thrombosis Retrognathia Obesity SANTO (obstructive sleep apnea) Hyperlipidemia, unspecified Essential hypertension Family History Family History Mother No problems noted. Father ALS (amyotrophic lateral sclerosis) Surgical History Surgical History H/O right knee surgery (2022) Social History Social History Housing: House Are you a primary child care nurse to a significant other at home: No Do you presently have visiting nurse or other home services: No Alcohol intake: current Alcohol intake frequency: a few times a week Alcohol type: beer and wine Patient Tobacco Use Status: Former Tobacco user Tobacco use type: Cigarette Years Smoked: 15 +/- Smoked in Last 30 Days: No Use of substances other than those prescribed or required for medical reasons: No Have you been hit, kicked, punched, or otherwise hurt by someone within the past year? If so, by whom?: No Are you DNR?: No Advance Directives: No Advance Directives Information Provided: Yes Advance Directives on File: No Recently lost weight without trying: No Nutrition Risks: No Nutritional Risk Meds Allergies Allergy/AdvReac Type Severity Reaction Status Date / Time No Known Allergies Allergy Verified 08/28/24 06:45 Home Medications ?Medication ?Instructions ?Recorded ?Confirmed ?Last Taken ?Type omeprazole 20 mg capsule,delayed 20 mg PO DAILY 09/27/22 08/24/24 Unknown History release atorvastatin 10 mg tablet 10 mg PO DAILY 12/06/22 08/24/24 Unknown History apixaban 5 mg tablet (Eliquis) 5 mg PO BID 04/13/23 08/24/2424 History Exam Height,Weight and Vital Signs: Height 5 ft 10 in Weight 92.986 kg Assessment and Plan Assessment Anesthesia Assessment: Chart Reviewed Documented by User: Susanne Nix MD 08/28/24 07:56 [facility], [facility] Past Medical History Medical History GERD (gastroesophageal reflux disease) Hx of deep venous thrombosis Retrognathia Obesity SANTO (obstructive sleep apnea) Hyperlipidemia, unspecified Essential hypertension Family History Family History Mother No problems noted. Father ALS (amyotrophic lateral sclerosis) Surgical History Surgical History H/O right knee surgery (2022) History of Problems with Anesthesia: No Social History Social History Housing: House Are you a primary child care nurse to a significant other at home: No Do you presently have visiting nurse or other home services: No Alcohol intake: current Alcohol intake frequency: a few times a week Alcohol type: beer and wine Patient Tobacco Use Status: Former Tobacco user Tobacco use type: Cigarette Years Smoked: 15 +/- Smoked in Last 30 Days: No Use of substances other than those prescribed or required for medical reasons: No Have you been hit, kicked, punched, or otherwise hurt by someone within the past year? If so, by whom?: No Are you DNR?: No Advance Directives: No Advance Directives Information Provided: Yes Advance Directives on File: No Recently lost weight without trying: No Nutrition Risks: No Nutritional Risk Meds Allergies Allergy/AdvReac Type Severity Reaction Status Date / Time No Known Allergies Allergy Verified 08/28/24 06:45 Home Medications ?Medication ?Instructions ?Recorded ?Confirmed ?Last Taken ?Type omeprazole 20 mg capsule,delayed 20 mg PO DAILY 09/27/22 08/24/24 Unknown History release atorvastatin 10 mg tablet 10 mg PO DAILY 12/06/22 08/24/24 Unknown History apixaban 5 mg tablet (Eliquis) 5 mg PO BID 04/13/23 08/24/24 08/10/24 History Exam Airway Mallampati Class: III TM Dist: >3cm Neck ROM: Full Loose/Missing/Broken Teeth: No Heart: RRR Lungs: CTA Assessment and Plan Assessment Anesthesia Assessment: Anesthesia Plan Discussed Final Anesthetic Review History of Problems with Anesthesia: No NPO: Yes ASA Class: III Final Preanesthetic Review: Meds/Allgs Chart Reviewed, Consent Obtained/Reviewed and Anes Risks/Benef Reviewed Patient Risk: Intermediate Procedure Risk: Low Anesthetic Plan Anesthetic Plan: MAC: Disposition: Standard PACU
[2024-08-28 07:11] VITALS: BP 173/100; PULSE 71; RESP 16; TEMP 36.9; O2SAT 96
[2024-08-28] MEDS: Lactated Ringers 1,000 ML 100 ML IVCONT (07:12)
--- NOTE | 2024-08-28 07:22 | MHC.SHP ---
Pre-Procedural Eval Section A - 24 Hr Update-Section A only Date of Service: 08/28/24 Section B - Complete if H&P > 30 days Chief Complaint: screening Details of Present Illness: see H&P no changes Relevant Family History (Specify if Yes): No Relevant Social History: None Present Medications: see Short Stay Collaborative assessment Medical History: No relevant PMH History of Previous Operations: No relevant previous surgery Allergies: Allergies Allergy/AdvReac Type Severity Reaction Status Date / Time No Known Allergies Allergy Verified 08/28/24 06:45 Review of Systems Sugical H&P ROS: Negative: Constitution, Cardiovascular, Respiratory, Neurological, Psychiatric, Hem-Onc, Allergic/Immunologic, Gastrointestinal, Genitourinary, Musculoskeletal, Integumentary, Endocrine and Eyes/Ears/Nose/Throat Exam Surgical H&P Exam: Normal: HEENT, Normal: Heart, Normal: Lungs, Normal: Extremities, Normal: Abdomen, Normal: Skin and Normal: Neurological Plan Diagnosis/Plan: Unchanged I have reviewed the history and physical and performed a pertinent physical examination on my patient. No changes have occurred unless specified. Time Spent With Patient Time: Total time managing care of this patient today ____ minutes.
[2024-08-28 08:15] VITALS: BP 115/78; PULSE 70; RESP 18; TEMP 36.2; O2SAT 99
[2024-08-28 08:31] VITALS: BP 127/84; PULSE 68; RESP 18; TEMP 36.3; O2SAT 99
--- NOTE | 2024-08-28 08:37 | OP_ITS ---
DATE OF SERVICE: 08/28/2024 SURGEON: Gibson Crane MD INDICATIONS: Colon cancer screening. PREOPERATIVE DIAGNOSIS: POSTOPERATIVE DIAGNOSIS: PROCEDURE PERFORMED: Colonoscopy to the terminal ileum with biopsy and snare polypectomy. ESTIMATED BLOOD LOSS: COMPLICATIONS: ANESTHESIA: Medications, monitored anesthesia care. ASSISTANTS: SPECIMENS: DESCRIPTION OF PROCEDURE: A history and physical was performed. The risks and benefits of the procedure were explained to the patient. Informed consent was obtained. The patient was placed in the left lateral decubitus position. A digital rectal exam was performed and was found to be normal. The Olympus pediatric video colonoscope was introduced into the rectum and advanced to the cecum. The cecum was identified by transillumination, palpation, identification of ileocecal valve. Examination was performed. The scope was removed. He tolerated the procedure well and was taken to recovery in stable condition. FINDINGS: The terminal ileum was examined and appeared normal. Visualized colonic mucosa was normal. The quality of the prep was good. Multiple polyps were identified and removed. In the cecum were 2 polyps. The 1st measured less than 5 mm and was removed with biopsy forceps. The 2nd measured approximately 7 mm and was removed with a cold snare. Polyps at 65 and 60 cm, 1 at 65 and 2 at 60 were removed with a combination of biopsy forceps and cold snare. In the rectum was a 10 mm polyp which was removed with a hot snare and recovered in piecemeal fashion. There was mild sigmoid diverticulosis. Retroflexed examination showed some small internal hemorrhoids. IMPRESSION: Colon polyps. RECOMMENDATION: Follow up the biopsy results. MD OMAR Capellan/MODL / [id number] MTDD
--- NOTE | 2024-08-28 08:58 | PM.OP ---
Brief Operative Note Date of Service: 08/28/24 Pre-op diagnosis: screening Post-op diagnosis: same Procedure: colonoscopy Surgeon: Gibson Crane MD Anesthesia: MAC Was an Wheel Cutter used for this Procedure?: No Estimated blood loss (mL): 5 Pathology: other Condition: stable Disposition: PACU
== END 2024-08-28 09:22 | disposition home or self-care (01) ==
PROVIDERS: PCP Internal Medicine; Visit Provider Internal Medicine Gastroenterology
PROC: 0DJD8ZZ Inspection of Lower Intestinal Tract, Via Natural or Artificial Opening Endoscopic (ICD-10-PCS; CPT 45378; principal; 2024-08-28 07:30)
DX: Z12.11 Encounter for screening for malignant neoplasm of colon (principal); D12.0 Benign neoplasm of cecum; D12.4 Benign neoplasm of descending colon; D12.8 Benign neoplasm of rectum; K57.30 Diverticulosis of large intestine without perforation or abscess without bleeding; K64.8 Other hemorrhoids; I10 Essential (primary) hypertension; E78.5 Hyperlipidemia, unspecified; G47.33 Obstructive sleep apnea (adult) (pediatric); K21.9 Gastro-esophageal reflux disease without esophagitis; Z86.718 Personal history of other venous thrombosis and embolism; Z79.02 Long term (current) use of antithrombotics/antiplatelets; Z79.899 Other long term (current) drug therapy; Z79.01 Long term (current) use of anticoagulants
CPT/HCPCS: 45385; 45380; 88305; J2003; J2250; J2704

== ENCOUNTER 2025-06-05 08:42 | Outpatient (AMB) | payer OTHER, SELFPAY ==
--- OUTSIDE RECORDS SUMMARY | 2024-01-12 10:55 | XMS_ITS ---
Author Organization [facility] Address [address] [place] [address] Care Team Providers Care Knitter Machine Name Role Phone Sada (RETIRED) Greg HATFIELD Primary Care Provide r Victorina Crane Jr, Gibson Prajapati REASON FOR VISIT Patient presents today for discuss colonoscopy Encounters Encounter Location Date Provider Diagnosis [facility] [address] [facility] [place] [address] 01/12/2024 Gibson Crane Jr Plan Of Treatment No Information Progress Notes * ESTRELLA SAWYER DDOB: [birth year] (59 yo M)Acc No.[id number]:01/12/2024 Progress Notes Patient: Myranda WALKER ESTRELLA Coughlin Provider: Myranda Crane MD :1965 A ge:58 Y S ex:Male Date:01/12/2024 Address:[id number] Pcp:Greg Tomlin (RETIRED )MD Subjective: * Chief [...] 0 01/12/2024 Generated for Obiei nik/Christiano/eTransmitting on: 1 09:21 AM EDT
--- OUTSIDE RECORDS SUMMARY | 2024-08-28 03:30 | XMS_ITS ---
Author Organization [facility] Address [address] [place] [phone] Care Team Providers Care Mental Hygienist Name Role Phone Sada (RETIRED) Greg HATFIELD Primary Care Provide r Gibson Baird Jr [phone] REASON FOR VISIT screening Encounters Encounter Location Date Provider Diagnosis [facility] [place] [address] [place] [phone] 08/28/2024 Gibson Crane Jr Colon cancer screening Z12.11 and Colon polyps K63.5 Assessments Encounter Date Diagnosis (ICD Code) Assessment Notes Treatment Notes Treatment Clinical Notes Section Notes 08/28/2024 Colon cancer screening (ICD-10 - Z12.11) 08/28/2024 Colon polyps (ICD-10 - K63.5) Plan Of Treatment No Information Progress Notes * ESTRELLA SAWYER DDOB: 7 (59 yo M)Acc No.[id number]:08/28/2024 COLON WITH MAC Patient: ESTRELLA GILBERT Provider: Myranda Crane MD :1965 A ge:58 Y S ex:Male Date:08/28/2024 Address:[address] [facility] Pcp:Greg Tomlin (RETIRED )MD Subjective: * Chief Complaints: * 1 . Screening. * Medical History: Objective: * Vitals: Assessment: * Assessment: 1. C olon cancer screening - Z12.11 (Primary) 2 . C olon polyps - K63.5? Plan: * Treatment: * Procedure Codes: 4 5385 LESION REMOVAL COLONOSCOPY, 64409 COLONOSCOPY AND BIOPSY, Modifiers: 59 * * The named appointment provid er may or may not be the originator of this progress note, and it is not deemed complete until electronically signed by the appointment provider. Sign off status: Pending * Provider: Myranda Crane MD Date: 0 08/28/2024 Generated for John zaragoza/Christiano/Demetriusitting on: 09:21 AM EDT
--- NOTE | 2025-06-05 09:03 | A.OFFVIS_ITS ---
Vital Signs 06/05/25 09:04 Height 5 ft 10 in Weight 217 lb 6.012 oz BMI 31.2 BP 136/80 Blood Pressure Location Lt brachial Position Sitting Pulse 76 Pulse Source Monitor Intake Visit Reasons: 1 yr f/up Administrator Health Care Facility Required: No Accompanied by: Self / Same As Patient Allergies No Known Allergies Allergy (Verified 06/05/25 09:06) Medication List - Last Reconciled 06/05/25 by Manny Shaw MD diltiazem HCl CD 120 mg PO DAILY omeprazole 20 mg PO DAILY HPI Comments Details: Heriberto returns for follow-up regarding PVCs. From the cardiac standpoint, no symptoms and he is feeling fine. Unfortunately, he is still drinks daily. Will obstructive sleep apnea but not using CPAP. . Continues to work without any issues. [facility] Medical History GERD (gastroesophageal reflux disease) Hx of deep venous thrombosis Retrognathia Obesity SANTO (obstructive sleep apnea) Hyperlipidemia, unspecified Essential hypertension Surgical History H/O right knee surgery (2022) Family History Mother No problems noted. Father ALS (amyotrophic lateral sclerosis) Social History Housing: House Are you a primary managed care nurse to a significant other at home: No Do you presently have visiting nurse or other home services: No Alcohol intake: current Alcohol intake frequency: a few times a week Alcohol type: beer and wine Patient Tobacco Use Status: Former Tobacco user Tobacco use type: Cigarette Years Smoked: 15 +/- Review of Systems Const Denies daytime sleepiness, Denies difficulty sleeping, Denies snoring, Denies stops breathing during sleep and Denies weakness Card Denies chest pain, Denies rapid heart rate, Denies irregular heart rhythm, Denies claudication, Denies leg edema, Denies lightheadedness, Denies palpitations, Denies dyspnea, Denies dyspnea on exertion, Denies orthopnea, Denies paroxysmal nocturnal dyspnea and Denies slow heart rate Resp Denies cough, Denies dyspnea, Denies dyspnea on exertion and Denies snoring GI Reports no additional complaints, Denies hematochezia, Denies change in stool character and Denies dyspepsia Musc Denies abnormal gait, Denies muscle weakness and Denies numbness Neuro Denies abnormal gait, Denies numbness and Denies weakness Endo Denies palpitations Physical Exam Vital Signs: Last Vital Signs Pulse 76 06/05/25 09:04 BP 136/80 06/05/25 09:04 BMI result Body Mass Index 31.2 Const General: comfortable and no acute distress Orientation/consciousness: patient oriented x3 HEENT Other: Unremarkable Head: Yes normal to inspection Neck Neck: Yes normal visual inspection Chest Chest palpation & inspection: normal inspection of the chest Resp Auscultation: clear to auscultation bilaterally Cardio Palpation: normal PMI Heart sounds: S1 normal heart sound present, S2 normal heart sound present, no gallops, no murmurs and no rubs GI Palpation (GI): Soft to palpation Back/Spine/Pelvis Other: unremarkable Skin General skin exam: no rashes or lesions noted Neuro General: patient oriented x3 Extrem General: Yes normal to inspection Psych Mental Status: mental status grossly normal Office Procedures EKG Details: EKG with sinus rhythm at 76/Min; rightward axis; cannot exclude old inferior infarct but more likely from body habitus; [place]. [id number], Complete Assessment & Plan Assessment & Plan (1) PVC (premature ventricular contraction): Code(s): I49.3 - Ventricular premature depolarization Category: Medical Plan: Cardiac studies reviewed. Echocardiogram with preserved LVEF. In the initial Holter monitor, PVC burden was 22%. Repeat study shows the burden of 7%. In the stress test, reached 7.9 METS. No cardiac symptoms. PVCs still noted, but some improvement. Perfusion component was unremarkable. Suspect this from some combination of weight, alcohol excess, obstructive sleep apnea. Continue Diltiazem. (2) Essential hypertension: Code(s): I10 - Essential (primary) hypertension Category: Medical Plan: It has been elevated in the past but today's reading seems okay. (3) SANTO (obstructive sleep apnea): Comment: no CPAP use Code(s): G47.33 - Obstructive sleep apnea (adult) (pediatric) Category: Medical Plan: Home sleep study shows moderately severe obstructive sleep apnea. He states he cannot tolerate CPAP mask. (4) Alcohol abuse: Code(s): F10.10 - Alcohol abuse, uncomplicated Category: Social Hx Plan: Drinks daily. In the past, LFTs were abnormal. Repeat labs ordered last time but not performed. He is well aware of the issues with alcohol. Hopefully, he can cut back. Plan Discussion Notes During the visit, we discussed the patient's current medication regimen and the need for follow-up care. I advised the patient to decrease his alcohol intake and to seek support for further reduction. We also reviewed the importance of managing his blood pressure and the need for a primary care provider to oversee his overall health management. Patient was informed and verbally consented to the use of an ambient scribe for clinic note documentation during this visit. Orders: Orders ECG 3 day holter monitor 1 Year I49.3 - Ventricular premature depolarization Patient Instructions: - Continue to monitor and reduce alcohol intake. - Follow up with a primary care provider for ongoing health management. - Adhere to prescribed medication regimen. Coding Level of Care Code Est Pt Level 4 (47533) Complex EM visit Add On G2211 Diagnoses PVC (premature ventricular contraction) I49.3 Essential hypertension I10 SANTO (obstructive sleep apnea) G47.33 Alcohol abuse F10.10 CPT Codes EKG - CPT: 20908-[id number], Complete ([id number])
[2025-06-05 09:04] VITALS: BP 136/80; PULSE 76; BMI 31.2
--- OUTSIDE RECORDS SUMMARY | 2025-06-05 09:21 | XMS_ITS | Patient Health Record ---
Author Organization [facility] Address [address] [place] [phone] Care Team Providers Care Manager Audio Name Role Phone Sada (RETIRED) Greg HATFIELD Primary Care Provide r Gibson Baird Jr Unavailable Allergies No Known Allergies Results Component Value Reference Range Notes Pathology Reviewed date:09/05/2024 07:50:45 AM Interpretation: Performing Lab:[facility], [address] [place] [phone] Notes/Report: Reason For Referral No Information Medications Medication SIG (Take, Route, Frequency, Duration) Notes Start Date End Date Status Omeprazole 20 MG Oral; Duration: 90 Active Atorvastatin Calcium 10 MG TAKE 1 TABLET BY MOUTH EVERY DAY Oral; Duration: 90 Active Eliquis 5 MG Oral; Duration: 90 Active dilTIAZem HCl ER Coated Beads 120 MG TAKE 1 CAPSULE BY MOUTH EVERY DAY Oral; Duration: 90 Active Immunizations Vaccine Route Administration Date Status Comme nts Influenza Unknown 05/09/2024 Refused Social History Tobacco Use: Social History Observation Description Date Details (start date - stop date) Never Smoker NA - NA Tobacco Use/Smoking Question Answer Notes Patient is [...] Never (0 point) Points 3 Interpretation Negative Problems Problem Type SNOMED Code ICD Code Onset Dates Problem Status W/U Status Risk Notes Problem Colon cancer screening (024732185) Colon cancer screening (Z12.11) Active confirmed Problem Long-term current use of anticoagulant (204203743) shelter (current) use of anticoagulants (Z79.01) Active confirmed Encounters Encounter Location Date Provider Diagnosis [facility] [place] Out[facility] [address] [place] [address], [place] [phone] 08/28/2024 Gibson Crane Jr Colon cancer screening Z12.11 and Colon polyps K63.5 [facility] [address] [place] [address] 09/05/2024 Gibson Crane Jr Assessments Encounter Date Diagnosis (ICD Code) Assessment Notes Treatment Notes Treatment Clinical Notes Section Notes 08/28/2024 Colon cancer screening (ICD-10 - Z12.11) 08/28/2024 Colon polyps (ICD-10 - K63.5) Plan Of Treatment Future Test Test Name Order Date COLONOSCOPY 05/09/2024 Insurance Providers Payer Name Payer Address Payer Phone Subscriber Number Group Number Insured Name Patient Relationship to Insured Coverage Start Date Coverage End Date [facility] Insurance ([employer]) [address] [place] [address] [phone] [id number] ESTRELLA SAWYER Self - patient is the insured Medical (General) History Medical History History ICD Code Deep venous thrombosis Gastroesophageal reflux disease Hypertension Hyperlipidemia PVCs SANTO Surgical History Surgery Date(Month/Year) Right patellar tendon repair 2022 Hospitalization History Reason Date(Month/Year) DVT 03/06
== END 2025-06-05 09:21 | disposition home or self-care (01) ==
LOC: HO.HCS 08:42
PROVIDERS: PCP Internal Medicine; Visit Provider Internal Medicine
DX: I49.3 Ventricular premature depolarization (principal); I10 Essential (primary) hypertension; G47.33 Obstructive sleep apnea (adult) (pediatric); F10.10 Alcohol abuse, uncomplicated
CPT/HCPCS: 93010; 99214

== ENCOUNTER → 2025-06-05 08:42 | Outpatient (BNVA) | payer OTHER, SELFPAY | PROVIDERS: PCP Internal Medicine; Visit Provider Internal Medicine | DX: I49.3 Ventricular premature depolarization (principal); I10 Essential (primary) hypertension; G47.33 Obstructive sleep apnea (adult) (pediatric); F10.10 Alcohol abuse, uncomplicated | CPT/HCPCS: 93005 ==

== ENCOUNTER 2025-06-25 07:55 | Outpatient (AMB) | payer OTHER, SELFPAY ==
--- OUTSIDE RECORDS SUMMARY | 2024-01-12 09:55 | XMS_ITS ---
Author Organization [facility] Address [address] [place] [address] Care Team Providers Care Photography Editor Name Role Phone Sada (RETIRED) , Greg Primary Care Provide r Victorina Crane Jr, Gibson Prajapati REASON FOR VISIT Patient presents today for discuss colonoscopy Encounters Encounter Location Date Provider Diagnosis [facility] [address] [facility] [place] [address] 01/12/2024 Gibson Crane Jr Plan Of Treatment No Information Progress Notes * ESTRELLA SAWYER DDOB: [birth year] (59 yo M)Acc No.[id number]:01/12/2024 Progress Notes Patient: Myranda WALKER ESTRELLA Coughlin Provider: Myranda Crane MD :1965 A ge:58 Y S ex:Male Date:01/12/2024 Address:[id number] Pcp:Greg Tomlin (RETIRED )MD Subjective: * Chief Complaints: * 1 . Patient presents today for discuss colonoscopy. * Medical History: Objective: * Vitals: Assessment: Plan: * Treatment: * * The named appointment provid er may or may not be the originator of this progress note, and it is not deemed complete until electronically signed by the appointment provider. Sign off status: Pending * Provider: Myranda Crane MD Date: 0 01/12/2024 Generated for Obiei nik/Christiano/eTransmitting on: 08/25/2024 07:58 AM EST
--- OUTSIDE RECORDS SUMMARY | 2024-08-28 02:30 | XMS_ITS ---
Author Organization [facility] Address [address] [place] [phone] Care Team Providers Care Laborer Tree Tapping Name Role Phone Sada (RETIRED) Greg HATFIELD Primary Care Provide r Gibson Baird Jr REASON FOR VISIT screening Encounters Encounter Location Date Provider Diagnosis [facility] [place] [address] [place] [phone] 08/28/2024 Gibson Crane Jr Colon cancer screening Z12.11 and Colon polyps K63.5 Assessments Encounter Date Diagnosis (ICD Code) Assessment Notes Treatment Notes Treatment Clinical Notes Section Notes 08/28/2024 Colon cancer screening (ICD-10 - Z12.11) 08/28/2024 Colon polyps (ICD-10 - K63.5) Plan Of Treatment No Information Progress Notes * ESTRELLA SAWYER DDOB: 7 (59 yo M)Acc No.[id number]:08/28/2024 COLON WITH MAC Patient: ESTRELLA GILBERT Provider: Myranda Crane MD :1965 A ge:58 Y S ex:Male Date:08/28/2024 Address:[address] [facility] Pcp:Greg Tomlin (RETIRED )MD Subjective: * Chief Complaints: * 1 . Screening. * Medical History: Objective: * Vitals: Assessment: * Assessment: 1. C olon cancer screening - Z12.11 (Primary) 2 . C olon polyps - K63.5? Plan: * Treatment: * Procedure Codes: 4 5385 LESION REMOVAL COLONOSCOPY, 90524 COLONOSCOPY AND BIOPSY, Modifiers: 59 * * The named appointment provid er may or may not be the originator of this progress note, and it is not deemed complete until electronically signed by the appointment provider. Sign off status: Pending * Provider: Myranda Crane MD Date: 0 08/28/2024 Generated for John zaragoza/Christiano/Demetriusitting on: 08/25/2024 07:58 AM EST
--- NOTE | 2025-06-25 07:04 | A.OFFPC_ITS ---
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 He reports feeling well overall, rating his health as 98 out of 100, with minor complaints of occasional knee soreness. He has a history of hypertension, hyperlipidemia, and gastroesophageal reflux disease (GERD). He also has a known history of premature ventricular contractions (PVCs) and had a cardiology appointment three weeks ago. Two years ago, the patient had surgery for a torn patellar tendon, which was complicated by a deep vein thrombosis (DVT) approximately one month post- operatively. He was treated with Eliquis for about six months and was advised to stop, which he did last August. Socially, the patient is a former smoker who quit 30 years ago but currently smokes a cigar about once a week. He reports consuming two to three alcoholic drinks daily and has had more than six drinks in one sitting, approximately once a month, with the most recent episode at a wedding six weeks ago. He denies the use of marijuana, heroin, or cocaine. Regarding health maintenance, he underwent a colonoscopy in August of this year and is not due for another until 2029. Medical History: - Hypertension - Hyperlipidemia - Gastroesophageal reflux disease - Premature ventricular contractions - History of deep vein thrombosis, provo ked by surgery Surgical History: - Patellar tendon repair, two years ago Medications: - Atorvastatin 10 mg for hyperlipidemia - Diltiazem for hypertension and prematu re ventricular contractions - Omeprazole for gastroesophageal reflux disease Family History: - Father: from ALS 17 years ago . - Mother: 85 years old and alive. - Siblings: Brother is healthy. - Denies family history of heart disease , diabetes, or cancer. Diagnostic Results: - Blood pressure at glove turner and former's offic e was 136/80 mmHg. - Colonoscopy performed last August was normal, with next screening due in 2029. Social History: - Tobacco Use: Patient quit smoking ciga rettes 30 years ago but currently smokes about one cigar per week. - Alcohol Use: Patient reports drinking two to three alcoholic beverages per day and engaging in binge drinking (more than six drinks) approximately once a month. - Illicit Substance Use: Denies use of m arijuana, heroin, or cocaine. 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 - Exercise: Reports being active, includ ing walking his dog three times a day. - Diet: Advised to reduce salt intake an d avoid processed foods. - Sleep: Reports trying a CPAP machine b ut was unable to use it; he now uses an elevated pillow which seems to help with snoring. [facility] Medical History (Updated 06/25/25 @ 08:43 by Jakob Quintanilla MD) Annual physical exam GERD (gastroesophageal reflux disease) Hx of deep venous thrombosis Retrognathia Obesity SANTO (obstructive sleep apnea) Hyperlipidemia, unspecified Essential hypertension Surgical History (Updated 06/24/25 @ 15:31 by Marion Zhao) History of colonoscopy (~08/28/24) H/O right knee surgery (2022) Family History Mother No problems noted. Father ALS (amyotrophic lateral sclerosis) Social History Housing: House Are you a primary childcare aide to a significant other at home: No Do you presently have visiting nurse or other home services: No Alcohol intake: current Alcohol intake frequency: a few times a week Alcohol type: beer and wine Patient Tobacco Use Status: Former Tobacco user Tobacco use type: Cigarette Years Smoked: 15 +/- e-Cigarette/Vaping Use: Never Used Second Hand Smoke Exposure: No service: No Current occupational status: employed Current occupation: [employer] [place] Questionnaire PHQ-9 Over the last 2 weeks, how often have you been bothered by any of the following problems? 1. Little interest or pleasure in doing things: not at all 2. Feeling down, depressed, or hopeless: not at all 3. Trouble falling or staying asleep, or sleeping too much: not at all 4. Feeling tired or having little energy: not at all 5. Poor appetite or overeating: not at all 6. Feeling bad about yourself - or that you are a failure or have let yourself or your family down: not at all 7. Trouble concentrating on things, such as reading the newspaper or watching television: not at all 8. Moving or speaking so slowly that other people could have noticed. Or the opposite - being so fidgety or restless that you have been moving around a lot more than usual: not at all 9. Thoughts that you would be better off or of hurting yourself in some way: not at all Total score: 0 Depression Screening Interpretation: Negative Depression Screening Done: Yes 74557 - PHQ-9 Billing: Yes Source: Developed by Drs. Kailash Esposito, Angela Loyola, Moise Ma and colleagues, with an educational alonso from [employer]. Thrive Questionnaire Date Thrive assessed: 06/25/25 I am a: Patient What is your living situation today?: I have a steady place to live Within the past 12 months, did the food you bought not last and you didn't have the money to get more?: Never true Within the past 12 months, did you worry whether your food would run out before you got money to buy more?: Never true Do you have trouble paying for medicines?: No Do you have trouble getting transportation to medical appointments?: No Do you have trouble paying your heating and electricity bill?: No Do you have trouble taking care of your child, family member or friend?: No Do you have trouble with day-to-day activities such as bathing, preparing meals, shopping, managing finances, etc.?: No Are you currently unemployed and looking for a job?: No Are you interested in more education?: No THRIVE Score: 0 AUDIT C Alcohol Use Questionnaire (AUDIT-C) 1. How often do you have a drink containing alcohol?: 4 or more times a week 2. How many drinks containing alcohol do you have on a typical day when you are drinking?: 3 or 4 3. How often do you have six or more drinks on one occasion?: Monthly Total Score: 7 Score Reviewed/Action Taken: Yes STEVE-7 AMB Questionnaire STEVE-7 Date STEVE - 7 assessed: 06/25/25 Feeling nervous, anxious, or on edge: 0 = Not at all Not being able to stop or control worryin = Not at all Worrying too much about different things: 0 = Not at all Trouble relaxin = Not at all Being so restless that it is hard to sit still: 0 = Not at all Becoming easily annoyed or irritable: 0 = Not at all Feeling afraid as if something awful might happen: 0 = Not at all Total STEVE-7 score (0-4 normal; 5-9 mild; 10-14 moderate; 15-21 severe): 0 Source: Developed by Drs. Kailash Esposito, Angela Loyola, Moise Ma and colleagues, with an educational alonso from [employer]. STEVE-7 Assessment Billing STEVE-7 Assessment Tool: STEVE-7 Assessment 51596 Review of Systems Narrative - Constitutional: Reports feeling well overall. - Musculoskeletal: Reports occasional sore knee. - Cardiovascular: Denies chest pain or fluttering in the chest. - Respiratory: Denies shortness of breath. - Gastrointestinal: Reports normal urination and defecation. Denies nausea or vomiting. - Neurological: Denies headaches. - Psychiatric: Denies depression, anxiety, feeling sad, or thoughts of self- harm. - Allergic/Immunologic: Denies any known allergies. All systems reviewed & are unremarkable except as reviewed in HPI and above Physical exam (Primary Care) Vital Signs: Last Vital Signs Temp 98.8 F 06/25/25 08:04 Pulse 81 06/25/25 08:04 Resp 18 06/25/25 08:04 BP 166/96 H 06/25/25 08:04 Pulse Ox 96 06/25/25 08:04 Oxygen Delivery Method Room Air 06/25/25 08:04 BMI result Body Mass Index 32.3 Tobacco/Smoking Status: Tobacco use Status Tobacco use date assessed 06/25/25 06/25/25 07:05 Patient Tobacco Use Status Former Tobacco user 06/25/25 07:05 Tobacco use type Cigarette 06/25/25 07:05 e-Cigarette/Vaping Use Never Used 06/25/25 08:07 Depression Screening Interpretation: Negative Narrative General: +Alert and oriented, Well nourished, No acute distress. Eye: Pupils are equal, round and reactive to light, Intact accommodation, Extraocular movements are intact, Normal conjunctiva, Vision unchanged. HENT: Normocephalic, Atraumatic, Tympanic membranes are clear, Normal hearing, Oral mucosa is moist, No pharyngeal erythema, Ear canals patent. Respiratory: Lungs CTA bilaterally, No wheeze, Respirations are non-labored. Cardiovascular: Regular rate, Regular rhythm, S1 auscultated, S2 auscultated, No murmur, Good pulses equal in all extremities, Normal peripheral perfusion, No edema. Gastrointestinal: Soft, Non-tender, Non-distended, Normal bowel sounds, No organomegaly. Musculoskeletal: Normal range of motion, Normal strength, No tenderness, No swelling, No deformity, Normal gait. Integumentary: Warm, Dry, [place], Intact. Neurologic: Alert, Oriented, Normal sensory, Normal motor function, No focal defects, Cranial Nerves II-XII are grossly intact, Normal deep tendon reflexes. Psychiatric: Cooperative, Appropriate mood & affect, Normal judgment. Coding Level of Care Code New Pt Level 4 (33531) New Pt Prev Care 40-64y(85367) Diagnoses Essential hypertension I10 Hyperlipidemia, unspecified hyperlipidemia type E78.5 Hyperlipidemia type: unspecified SANTO (obstructive sleep apnea) G47.33 PVC (premature ventricular contraction) I49.3 Alcohol abuse F10.10 Hx of deep venous thrombosis Z86.718 Annual physical exam Z00.00 Additional Codes PHQ-9 - 52935 - PHQ-9 Billing: Yes ([id number]) STEVE-7 Assessment Billing - STEVE-7 Assessment Tool: STEVE-7 Assessment 05933 ([id number]) Comment [id number] Assessment & Plan Assessment & Plan (1) Essential hypertension: Comment: - The patient's blood pressure is elevated at 166/96 mmHg in office. - He is instructed to monitor his blood pressure at home once daily for the next two weeks an hour and a half after taking his medication. - He is to record the readings and return for a follow-up visit in two weeks. - If pressures remain high, medication adjustment will be considered. - He was advised to purchase a BP cuff for his arm. Code(s): I10 - Essential (primary) hypertension Category: Medical (2) Hyperlipidemia, unspecified: Comment: - Continue current dose of atorvastatin 10 mg. A lipid panel is included in today's lab order. Code(s): E78.5 - Hyperlipidemia, unspecified Category: Medical Qualifiers: Hyperlipidemia type: unspecified Qualified Code(s): E78.5 - Hyperlipidemia, unspecified (3) SANTO (obstructive sleep apnea): Comment: - Not actively using CPAP, reports its uncomfortable Code(s): G47.33 - Obstructive sleep apnea (adult) (pediatric) Category: Medical (4) PVC (premature ventricular contraction): Comment: - Seen on holter monitor, and currently being managed with diltiazem - The patient was recently evaluated by a glove turner and former for this condition. Code(s): I49.3 - Ventricular premature depolarization Category: Medical (5) Alcohol abuse: Comment: - The patient reports consuming 2-3 alcoholic drinks daily and binge drinking monthly. - He was extensively counseled on the health risks, including alcoholic cirrhosis, cardiomyopathy, and neuropathy. - He was advised to reduce intake to no more than 1-2 drinks on occasion, 3-5 times a week, and to completely stop binge drinking. - Liver function tests will be checked as part of the ordered labs. Code(s): F10.10 - Alcohol abuse, uncomplicated Category: Social Hx (6) Hx of deep venous thrombosis: Comment: - The DVT was provoked by surgery and he completed a 6-month course of Eliquis, which he stopped in August. - There is no indication to restart anticoagulation at this time. Code(s): Z86.718 - Personal history of other venous thrombosis and embolism Category: Medical (7) Annual physical exam: Comment: - Comprehensive labs are ordered including CBC, electrolytes, hepatitis panel, HIV, syphilis, glucose, cholesterol, vitamin D, and a urinalysis. - The patient is advised to get the flu and COVID-19 shots for the current year. - The patient's colonoscopy is up to date until 2029, and he does not require lung cancer screening. - He was counseled on diet, including reducing salt and avoiding processed foods. - He was encouraged to continue using an elevated pillow for snoring to protect his heart Code(s): Z00.00 - Encounter for general adult medical examination without abnormal findings Category: Medical Plan: Health Maintenance: - Immunizations: Advised to get the flu and COVID-19 shots for the current year. - Cancer Screening: Colonoscopy is up to date, with the last one performed in August of this year; next one is due in 2030. No lung cancer screening is indicated as he quit smoking over 15 years ago. - Healthy Lifestyle: Counseled on reducing salt intake and avoiding processed foods. - Substance Use Counseling: Provided extensive counseling on the dangers of his current alcohol consumption and advised significant reduction. Advised to reduce intake to 1-2 drinks, 3-5 times a week, and cease binge drinking. - Sleep: Encouraged to continue using an elevated pillow for snoring, as it may help protect his heart. Patient was informed and verbally consented to the use of an ambient scribe for clinic note documentation during this visit. Vital signs reviewed. Comprehensive history, review of systems, and physical exam completed. Medications, allergies, and problem list reviewed and updated. Counseling provided on nutrition, regular exercise, sleep hygiene, and moderation of alcohol use. Discussed age-appropriate screenings (mammogram, colonoscopy, Pap, bone density) and immunizations (flu, COVID, shingles, Tdap). Screened for depression, fall risk, and home safety; no current concerns. Discussed stress management, dental and vision care, and importance of ongoing preventive follow-up. Routine labs ordered for metabolic and lipid screening. Patient educated on healthy lifestyle and agrees with the plan. Plan I discussed the patient's elevated blood pressure reading of 166/96 mmHg with him. I instructed him to monitor his blood pressure at home for two weeks and return for a follow-up to review the log, at which point we may adjust his medications. I had a detailed discussion regarding his unsafe level of alcohol consumption, which includes 2-3 drinks daily and monthly binge drinking. I explained the severe health risks, such as liver cirrhosis, dilated cardiomyopathy, nerve damage, and effects on his blood pressure. I strongly advised him to cut down to a maximum of 1-2 drinks, not every day, and to cease binge drinking. I ordered comprehensive lab work, including a screen for infectious diseases like hepatitis, HIV, and syphilis, as well as an assessment of his electrolytes, liver function, sugars, and cholesterol. I confirmed that his colonoscopy is up to date and that he does not need to restart Eliquis for his past DVT. We will review all lab results at his two-week follow-up appointment. I also recommended he get his annual flu and COVID-19 vaccinations. Orders: Orders Hemoglobin A1c Today Z00.00 - Encounter for general adult medical examination without abnormal findings Lipid Panel Today Z00.00 - Encounter for general adult medical examination without abnormal findings TSH reflex Free T4 Today Z00.00 - Encounter for general adult medical examination without abnormal findings Complete Blood Count Auto Diff Today Z00.00 - Encounter for general adult medical examination without abnormal findings Comprehensive Met. Panel Today Z00.00 - Encounter for general adult medical e xamination without abnormal findings Hepatitis A,B,C Profile Today Z00.00 - Encounter for general adult medical examination without abnormal findings HIV Ab/Ag Today Z00.00 - Encounter for general adult medical examination without abnormal findings Microalbumin, Random (w Creat) Today Z00.00 - Encounter for general adult medical examination without abnormal findings Syphilis Screen Today Z00.00 - Encounter for general adult medical examination without abnormal findings Vitamin D 25-OH Total Today Z00.00 - Encounter for general adult medical examination without abnormal findings Patient Instructions: - Buy a blood pressure cuff that goes on your arm, not your wrist. - Check your blood pressure once a day for the next two weeks. Do this about an hour to an hour and a half after you take your morning medication. - When you check your pressure, sit comfortably with your feet on the ground and relax for five minutes before taking the reading. Write down the numbers each day. - You must cut down on your alcohol use. Do not have more than two drinks in a day, and avoid drinking every day. Do not have episodes of heavy drinking (more than six drinks). - Go to the lab across the [place] today to get your blood and urine tests done. - Go to your pharmacy to get your annual flu shot and COVID-19 shot. - Continue taking your current medications for blood pressure, cholesterol, and acid reflux as prescribed. - Eat a healthy diet by reducing salt and avoiding processed foods. - Schedule a follow-up appointment to see me in two weeks to go over your blood pressure log and lab results.
--- OUTSIDE RECORDS SUMMARY | 2025-06-25 07:58 | XMS_ITS | Data Portability ---
Author Organization [facility], [facility] Address [address] [place] [address] Assessment Encounter Date Assessment Date Assessment LastModified by Organization Details LastModified Time 12/01/2023 12/01/2023 Procedure: right patellar tendon repair Date of surgery: 02/01/23 Surgeon: Dr. Diehl HPI:57-year-old male presents accompanied by his for post op evaluation regarding right patellar tendon repair. Overall patient doing okay. No longer taking medication for pain. Pain is very minimal. He went for an ultrasound on 03/04/2023. This showed a large DVT. He was taken to the hospital. He has been started on Eliquis. He no longer uses a brace. He did physical therapy, but they have stopped. he is comfortable with the home exercise program. He Has finished his Eliquis. He is asymptomatic. He is able to do all activities but finds some difficulty with walking down the stairs. He is back golfing. He is happy with his recovery. Past family, medical, social history and review of symptoms have been reviewed, updated and it is located in the patient's chart. Examination: The patient is well appearing and in no apparent distress. Alert and oriented x3. Gait is asymmetric. Right lower extremity: Moderate edema noted throughout the entire knee joint, surgical incision benign without evidence of infection. Nontender to palpation throughout the knee joint. Knee range of motion From 0-100 . He has quadriceps atrophy. Full ankle and digital range of motion noted. Calf is supple and nontender. Neurovascular sensation intact distally. He has a swollen right foot and calf. Peripheral, vascular, lymphatic examination, skin, neurological, coordination, reflexes, sensation are within normal limits. X-rays ordered, obtained and reviewed at [facility]: 2 view of the right knee previously obtained, independently reviewed by myself reveals hardware in appropriate position without displacement able to appreciate small avulsion fracture site however patella within normal position. He has tension band wire around the patella fixation. The wire has broken around the tibial tubercle. The patella remains is at the proper height. No change from previous x-ray. Impression: status post right patellar tendon repair Plan: Findings discussed with the patient. We reviewed his progress thus far. He has done very well in his recovery. He is now 10 months out from surgery. He has an expected clinical course. He has good strength in his quadriceps. He will benefit from continued close chain exercises such as climbing up and down stairs, biking, and leg press in the gym. He has no restrictions. He may run. He is expected to have some discomfort around the surgical area occasionally. I would cautionn him about steroid injections in the future. All questions were answered. He will follow-up on a p.r.n. basis. Speech recognition band saw operator cake cutting software was used to create portions of this document. An attempt at proofreading has been made to clementine [email or web address] Not available 12/01/2023 09:26:33 Plan of Treatment Reminders Order Date Submit Date Provider Last Modified By Organization Details Last Modified Time Details Appointments None record ed. Lab None record ed. Referral None record ed. Procedures None record ed. Surgeries None record ed. Imaging None record ed. Medication Orders None record ed. Patient TargetsNo targets recorded. Patient InstructionsNo instructions recorded. Reason for Referral None Reported. Results Created Date Observation Date Name Description Value Unit Range Abnormal Flag Note LastModifiedBy Organization Detail LastModifiedTime 04/13/2003/04/2023 [place] ng/chidi fontaine tic resul t No observ ation record ed. [email or web address] Not Available 03/17 13:37:39 Result Notes None recorded. Problems Name Problem SNOMED Code Status Onset Date Resolution Date Notes Provider Name and Address Organization Details Recorded Time Right patellar tendon rupture [id number] 02 Active 2023 JAZMIN cain [place] - [facility] 17:36:48 Problem Notes None recorded. Medical Equipment None Reported. Allergies No known drug allergies Medications Name Sig Start Date Stop Date Status Note LastModified by Organization Details LastModified Time atorvastati n 10 mg tablet TAKE 1 TABLET BY MOUTH EVERY DAY active Not Available Not Available No t Available metoprolol succinate ER 50 mg tablet,exte nded release 24 hr TAKE 1 TABLET BY MOUTH EVERY DAY 11/30 completed Not Available Not Available Not Available ibuprofen 400 mg tablet TAKE 1 TABLET BY MOUTH EVERY 6 HOURS NEEDED 11/30 completed Not Available Not Available Not Available docusate sodium 100 mg capsule TAKE 1 CAPSULE BY MOUTH TWICE A DAY FOR 7 DAYS 11/30 completed Not Available Not Available Not Available omeprazole 20 mg capsule,del ayed release TAKE 1 CAPSULE BY MOUTH EVERY DAY active Not Available Not Available No t Available diltiazem CD 120 mg capsule,ext ended release 24 hr TAKE 1 CAPSULE BY MOUTH EVERY DAY active Not Available Not Available No t Available oxycodone 5 mg tablet TAKE 1 TABLET BY MOUTH EVERY 4 TO 6 HOURS NEEDED FOR PAIN 11/30 completed Not Available Not Available Not Available enoxaparin 40 mg/0.4 mL subcutaneou s syringe INJECT 0.4ML SUBCUTANE OUSLY DAILY X28 DAYS 11/30 completed Not Available Not Available Not Available Eliquis 5 mg tablet TAKE 1 TABLET BY MOUTH TWICE A DAY active Not Available Not Available No t Available Vitals Date Recorded Body height Body mass index (BMI) Body weight Provider Name and Address Organization Details Last Updated DateTime 12/01/2023 177.8 cm 29.4 kg/m2 40516.44 g JAZMIN DURAN [place] - [facility] 12/01/2023 08:41:19 Social History None recorded. Functional Status None recorded. Mental Status None recorded. Family History Nothing Reported. Medical History No medical history recorded. Past Encounters Encounter ID Performer Location Encounter Start Date Encounter Closed Date Diagnosis/Indication Diagnosis SNOMED-CT Code Diagnosis ICD10 Code Diagnosis IMO Codes Diagnosis Note [id number] MD Hang Gallegos [address] [place] [address] 12/01/2023 08:09:12 12/22/2023 15:53:33 Right patellar tendon rupture [id number] S76.111D Health Concerns Section Related Observation LastModified by Organization Detai ls LastModified Time None Recorded Concern Status LastModified by Organization Details LastModified Time None Recorded Advance Directives Directive None Recorded Payers Insurance Date Sequence Insurance Name Policy Number Policy Camacho Covered Member ID Camacho Member ID Guarantor Name 12/22/2023 1 [facility] (PPO) [id number] 3 Heriberto Knox [id number] Heriberto Knox
--- OUTSIDE RECORDS SUMMARY | 2025-06-25 07:59 | XMS_ITS | Patient Health Record ---
Author Organization [facility] Address [address] [place] [id number] Care Team Providers Care Veterans Contact Representative Name Role Phone Sada (RETIRED) Greg HATFIELD Primary Care Provide r Gibson Baird Jr Unavailable Allergies No Known Allergies Results Component Value Reference Range Notes Pathology Reviewed date:09/05/2024 07:50:45 AM Interpretation: Performing Lab:[facility], [address] [place] [phone] Notes/Report: Reason For Referral No Information Medications [...] Status Risk Notes Problem Colon cancer screening (404879300) Colon cancer screening (Z12.11) Active confirmed Problem Long-term current use of anticoagulant (359068024) 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 of anticoagulants (Z79.01) Active confirmed Encounters Encounter Location Date Provider Diagnosis [facility] Outpatient [address], [place] [id number] 08/28/2024 Gibson Crane Jr Colon cancer screening Z12.11 and Colon polyps K63.5 [facility] [address] [place] [address] 09/05/2024 Gibson Crane Jr Assessments Encounter Date [...] Insured Coverage Start Date Coverage End Date [facility] Insurance ([employer]) [address] [place] [address] [id number] ESTRELLA SAWYER Self - patient is the insured Medical (General) History Medical History History ICD Code Deep venous thrombosis Gastroesophageal reflux disease Hypertension Hyperlipidemia PVCs SANTO Surgical History Surgery Date(Month/Year) Right patellar tendon repair 2022 Hospitalization History Reason Date(Month/Year) DVT 03/06
[2025-06-25 08:04] VITALS: BP 166/96; PULSE 81; RESP 18; TEMP 37.1; O2SAT 96; BMI 32.3
== END 2025-06-25 08:29 | disposition home or self-care (01) ==
PROVIDERS: PCP Student in an Organized Health Care Education/Training Program; Visit Provider Student in an Organized Health Care Education/Training Program
DX: Z00.00 Encounter for general adult medical examination without abnormal findings (principal); I10 Essential (primary) hypertension; E78.5 Hyperlipidemia, unspecified; G47.33 Obstructive sleep apnea (adult) (pediatric); I49.3 Ventricular premature depolarization; F10.10 Alcohol abuse, uncomplicated; Z86.718 Personal history of other venous thrombosis and embolism

== ENCOUNTER → 2025-06-25 07:55 | Outpatient (BNVA) | payer OTHER, SELFPAY | PROVIDERS: PCP Internal Medicine; Visit Provider Student in an Organized Health Care Education/Training Program | DX: Z00.00 Encounter for general adult medical examination without abnormal findings (principal); I10 Essential (primary) hypertension; E78.5 Hyperlipidemia, unspecified; G47.33 Obstructive sleep apnea (adult) (pediatric); I49.3 Ventricular premature depolarization; F10.10 Alcohol abuse, uncomplicated; Z86.718 Personal history of other venous thrombosis and embolism; Z79.899 Other long term (current) drug therapy; Z13.31 Encounter for screening for depression; Z13.39 Encounter for screening examination for other mental health and behavioral disorders | CPT/HCPCS: 96127 ==

== ENCOUNTER 2025-07-03 11:56 | Outpatient (REF) | payer OTHER, SELFPAY ==
--- OUTSIDE RECORDS SUMMARY | 2024-01-12 09:55 | XMS_ITS ---
Author Organization [facility] Address [address] [place] [address] Care Team Providers Care Cloth Folder Hand Name Role Phone Sada (RETIRED) Greg HATFIELD Primary Care Provide r Victorina Crane Jr, Gibson Prajapati REASON FOR VISIT Patient presents today for discuss colonoscopy Encounters Encounter Location Date Provider Diagnosis [facility] [address] [facility] [address] 01/12/2024 Gibson Crane Jr Plan Of Treatment No Information Progress Notes * ESTRELLA SAWYER DDOB: [birth year] (59 yo M)Acc No.[id number]:01/12/2024 Progress Notes Patient: Myranda WALKER ESTRELLA Coughlin Provider: Myranda Crane MD :1965 A ge:58 Y S ex:Male Date:01/12/2024 Address:[id number] Pcp:Greg Tomlin (RETIRED )MD Subjective: * Chief Complaints: * P atient presents today for discuss colonoscopy * The named appointment provid er may or may not be the originator of this progress note, and it is not deemed complete until electronically signed by the appointment provider. Sign off status: Pending * Provider: Myranda Crane MD Date: 01/12/2024 Generated for John zaragoza/Christiano/eTransmitting on: 09/02/2024 11:08 PM EST
--- OUTSIDE RECORDS SUMMARY | 2024-08-28 02:30 | XMS_ITS ---
Author Organization [facility] Address [address] [place] [address] Care Team Providers Care Pbx Teacher Name Role Phone Sada (RETIRED) Greg HATFIELD Primary Care Provide r Gibson Baird Jr REASON FOR VISIT screening Encounters Encounter Location Date Provider Diagnosis [facility] [place] Outpatient [address] [place] [phone] 08/28/2024 Gibson Crane Jr Colon cancer screening Z12.11 and Colon polyps K63.5 Assessments Encounter Date Diagnosis (ICD Code) Assessment Notes Treatment Notes Treatment Clinical Notes Section Notes 08/28/2024 Colon cancer screening (ICD-10 - Z12.11) 08/28/2024 Colon polyps (ICD-10 - K63.5) Plan Of Treatment No Information Progress Notes * ESTRELLA SAWYER DDOB: 7 (59 yo M)Acc No.[id number]:08/28/2024 COLON WITH MAC Patient: ESTRELLA GILBERT Provider: Myranda Crane MD :1965 A ge:58 Y S ex:Male Date:08/28/2024 Address:[address] [facility] Pcp:Greg Tomlin (RETIRED )MD Subjective: * Chief Complaints: * S creening Assessment: * Assessment: 1. C olon cancer screening - Z12.11 (Primary) 2 . C olon polyps - K63.5? Plan: * Procedure Codes: 4 5385 LESION REMOVAL [id number] COLONOSCOPY AND BIOPSY, Modifiers: 59 Billing Information: * Procedure Codes: 42966 LESION REMOVAL COLONOSCOPY. 65107 COLONOSCOPY AND BIOPSY. Modifiers: 59 * The named appointment provid er may or may not be the originator of this progress note, and it is not deemed complete until electronically signed by the appointment provider. Sign off status: Pending * Provider: Myranda Crane MD Date: 0 08/28/2024 Generated for John zaragoza/Christiano/Demetriusitting on: 09/02/2024 11:08 PM EST
[2025-07-03 13:31] LABS: Hematocrit 43.2 % (42.0-52.0); Hemoglobin 15.2 g/dl (14.0-18.0); Imm Gran Abs Auto 0.00 X10*3/uL (0.00-0.03); Imm Gran Pct Auto 0.0 % (0.0-0.4); Lymphocytes Absolute Auto 1.8 X10*3/uL (1.2-4.9); MANUAL DIFF FLAG SCAN; Mean Corpuscular HGB Conc 35.2 g/dl (31.0-36.0); Mean Corpuscular Hemoglobin 34.9 pg (27.0-33.0); Mean Corpuscular Volume 99.1 fL (80.0-98.0); NRBC Abs Auto 0.000 X10*3/uL (0.0-0.012); NRBC Pct Auto 0.0 /100WBC (0.0-0.2); Platelet Count 185 X10*3/uL (160-400); Red Blood Count 4.36 X10*6/uL (4.60-5.80); SCAN SMEAR FLAG 1; White Blood Count 3.1 X10*3/uL (4.8-10.8)
[2025-07-03 15:52] LABS: Alanine Aminotransferase 108 U/L (0-40); Albumin Level 4.8 g/dL (3.5-5.0); Alkaline Phosphatase 62 U/L (39-117); Anion Gap 12 (12-20); Aspartate Amino Transferase 61 U/L (5-37); Blood Urea Nitrogen 11 mg/dL (9-16); Calcium 9.4 mg/dL (8.4-10.2); Carbon Dioxide 26 mmol/L (22-29); Chloride 105 mmol/L (96-108); Cholesterol 287 mg/dL (<200); Estimated Glomerular Filt Rate > 60; HDL Cholesterol 73 mg/dL (>40); Potassium 4.2 mmol/L (3.3-5.1); Sodium 139 mmol/L (135-145); Total Protein 7.2 g/dL (6.5-8.0); Triglycerides 147 mg/dL (<150)
--- OUTSIDE RECORDS SUMMARY | 2025-07-03 23:08 | XMS_ITS | Data Portability ---
Author Organization [facility], [facility] Address [address] [place] [address] Assessment Encounter Date Assessment Date Assessment LastModified [...] follow-up on a p.r.n. basis. Speech recognition engineer third assistant software was used to create portions of [...] Details Recorded Time Right patellar tendon rupture [id number] 02 Active 2023 JAZMIN cain [place] - [facility] 17:36:48 Problem Notes None recorded. Medical Equipment [...] Updated DateTime 12/01/2023 177.8 cm 29.4 kg/m2 39094.44 g JAZMIN DURAN [place] - [facility] 12/01/2023 08:41:19 Social History None recorded. Functional Status None recorded. Mental Status None recorded. Family History Nothing Reported. Medical History No medical history recorded. Past Encounters Encounter ID Performer Location Encounter Start Date Encounter Closed Date Diagnosis/Indication Diagnosis SNOMED-CT Code Diagnosis ICD10 Code Diagnosis IMO Codes Diagnosis Note [id number] MD Hang Gallegos [address] [place] [address] 12/01/2023 08:09:12 12/22/2023 15:53:33 Right patellar tendon rupture [id number] S76.111D Health Concerns Section Related Observation LastModified by Organization Detai ls LastModified Time None Recorded Concern Status LastModified by Organization Details LastModified Time None Recorded Advance Directives Directive None Recorded Payers Insurance Date Sequence Insurance Name Policy Number Policy Camacho Covered Member ID Camacho Member ID Guarantor Name 12/22/2023 1 [facility] IN[facility] (PPO) [id number] 3 Heriberto Knox [id number] Heriberto Knox
--- OUTSIDE RECORDS SUMMARY | 2025-07-03 23:08 | XMS_ITS | Patient Health Record ---
Author Organization [facility] Address [address] [place] [address] Care Team Providers Care Hotel Desk Clerk Name Role Phone Sada (RETIRED) Greg HATFIELD Primary Care Provide r Gibson Baird Jr Unavailable [phone] Allergies No Known Allergies Results Component Value Reference Range Notes Pathology Reviewed date:09/05/2024 07:50:45 AM Interpretation: Performing Lab:[facility], [address] [place] [phone] Notes/Report: Reason For Referral No Information Medications Medication SIG (Take, Route, Frequency, Duration) Notes Start Date End Date Status Omeprazole 20 MG Capsule Delayed Release Oral; Duration: 90 Active Atorvastatin Calcium 10 MG Tablet TAKE 1 TABLET BY MOUTH EVERY DAY Oral; Duration: 90 Active Eliquis 5 MG Tablet Oral; Duration: 90 Active dilTIAZem HCl ER Coated Beads 120 MG Capsule Extended Release 24 Hour TAKE 1 CAPSULE BY MOUTH EVERY DAY Oral; Duration: 90 Active Immunizations Vaccine Route Administration Date Status Comme nts Influenza Unknown 05/09/2024 Refused Social History Tobacco Use: Social History Observation Description Date Details (start date - stop date) Never Smoker NA - NA Social History Drugs/Alcohol: Social Info Question Answer Notes Alcohol Screen Did you have a drink containing alcohol in the past year? Yes How often did you have a drink containing alcohol in the past year? 2 to 4 times a month (2 points) How many drinks did you have on a typical day when you were drinking in the past year? 3 or 4 drinks (1 point) How often did you have 6 or more drinks on one occasion in the past year? 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) use of anticoagulants (Z79.01) Active confirmed Encounters Encounter Location Date Provider Diagnosis [facility] Out[place] [address], [place] [id number] 08/28/2024 Gibson Crane Jr Colon cancer screening Z12.11 and Colon polyps K63.5 [facility] [address] [place] [address] 09/05/2024 Gibson Crane Jr Assessments Encounter Date [...] Insured Coverage Start Date Coverage End Date [facility] Insurance ([employer]) [address] [place] [address] [phone] [id number] ESTRELLA SAWYER Self - patient is the insured Medical (General) History Medical History History ICD Code Deep venous thrombosis Gastroesophageal reflux disease Hypertension Hyperlipidemia PVCs SANTO Surgical History Surgery Date(Month/Year) Right patellar tendon repair 2022 Hospitalization History Reason Date(Month/Year) DVT 03/06
[2025-07-04 08:39] LABS: Syphilis Screen Nonreactive (Nonreactive)
[2025-07-04 08:55] LABS: HBS Num1 0.00 mIU/mL (0-7.99); HBc Num1 0.08 S/CO (0.00-0.79); HBsAGNum1 0.43 S/CO (0.00-0.99); HIV Num 1 0.06 S/CO (0.00-0.99); Hepatitis A Antibody IgM 0.17 Index (0-0.79); Hepatitis B Surface Antigen Negative (Negative); ~HepC Num1 0.15 S/CO (0.00-0.79); ~Hepatitis A Antibody IgM Nonreactive (Nonreactive); ~Hepatitis B Surface Antibody NONREACTIVE (Nonreactive); ~Hepatitis C Antibody Nonreactive (Nonreactive)
== END 2025-07-03 11:57 | disposition home or self-care (01) ==
LOC: HO.HMGCLDS 11:56
PROVIDERS: PCP Student in an Organized Health Care Education/Training Program; Visit Provider Student in an Organized Health Care Education/Training Program
DX: Z00.00 Encounter for general adult medical examination without abnormal findings (principal); Z11.4 Encounter for screening for human immunodeficiency virus [HIV]; Z13.1 Encounter for screening for diabetes mellitus; Z13.6 Encounter for screening for cardiovascular disorders; Z13.21 Encounter for screening for nutritional disorder
CPT/HCPCS: 36415; 80053; 80061; 82043; 82306; 82570; 83036; 84443; 85025; 86704; 86706; 86709; 86780; 86803; 87340; 87389

== ENCOUNTER 2025-07-09 08:09 | Outpatient (AMB) | payer OTHER, SELFPAY ==
--- NOTE | 2025-07-09 08:18 | MHC.PC.OV ---
Vital Signs 07/09/25 08:20 BP 154/90 H Blood Pressure Location Lt brachial Position Sitting Respiration 18 Pulse 101 H Pulse Source Pulse Oximeter Temp 98.8 F Temp Source Temporal Artery Scan Pulse Oximetry (%) 94 Oxygen Delivery Method Room Air Intake Visit Reasons: 2 week f/u bp Marine Equipment Test Engineer Required: No Accompanied by: Self / Same As Patient Allergies No Known Allergies Allergy (Verified 07/09/25 08:19) Medication List - Last Reconciled 07/09/25 by Jakob Quintanilla MD atorvastatin (Lipitor) 20 mg PO BEDTIME diltiazem HCl CD (Cartia XT) 240 mg PO DAILY omeprazole 20 mg PO DAILY 90 days Tobacco use date assessed: 06/25/25 Dental Screening Dental Screen Date: 06/25/25 HPI HPI Comments History of Present Illness Details History of Present Illness The patient is a 59 year old individual presenting for follow-up and management of chronic conditions, primarily hypertension and hyperlipidemia. Regarding hypertension, the patient has been monitoring blood pressure at home and reports persistent readings in the 150s, despite one reading of 123/80 mmHg. The patient is currently taking diltiazem 120 mg, which is not adequately controlling the blood pressure. For hyperlipidemia, the patient is on atorvastatin 10 mg. Recent lab work from the previous week revealed an LDL cholesterol of 185 mg/dL and a total cholesterol of 287 mg/dL. The patient reports a diet high in seafood and low in processed foods, with some intake of red meat. The patient is also taking omeprazole 20 mg for acid reflux. Medical History: - Hypertension - Hyperlipidemia - Gastroesophageal reflux disease Medications: - Atorvastatin 10 mg for hyperlipidemia - Diltiazem 120 mg for hypertension - Omeprazole 20 mg for acid reflux Diagnostic Results: - Labs from last week: - LDL cholesterol: 185 mg/dL - Total cholesterol: 287 mg/dL - Thyroid function: Good - Blood sugar: Good Social History - Diet: Reports eating a lot of seafood and not much processed food. - Acknowledges some consumption of red meat, butter, and carbohydrates and agrees to moderation. [facility] Medical History (Updated 07/09/25 @ 08:46 by Jakob Quintanilla MD) GERD without esophagitis Annual physical exam GERD (gastroesophageal reflux disease) Hx of deep venous thrombosis Retrognathia Obesity SANTO (obstructive sleep apnea) Hyperlipidemia, unspecified Essential hypertension Surgical History (Updated 06/24/25 @ 15:31 by Marion Zhao) History of colonoscopy (~08/28/24) H/O right knee surgery (2022) Family History Mother No problems noted. Father ALS (amyotrophic lateral sclerosis) Social History Housing: House Are you a primary emergency care tech to a significant other at home: No Do you presently have visiting nurse or other home services: No Alcohol intake: current Alcohol intake frequency: a few times a week Alcohol type: beer and wine Patient Tobacco Use Status: Former Tobacco user Tobacco use type: Cigarette Years Smoked: 15 +/- e-Cigarette/Vaping Use: Never Used Second Hand Smoke Exposure: No service: No Current occupational status: employed Current occupation: [employer] [place] Questionnaire Thrive Questionnaire Date Thrive assessed: 06/25/25 AUDIT C Alcohol Use Questionnaire (AUDIT-C) 2. How many drinks containing alcohol do you have on a typical day when you are drinking?: 1 or 2 3. How often do you have six or more drinks on one occasion?: Less than monthly Total Score: 1 STEVE-7 AMB Questionnaire STEVE-7 Date STEVE - 7 assessed: 06/25/25 Source: Developed by Drs. Kailash Esposito, Angela Loyola, Moise Ma and colleagues, with an educational alonso from [employer]. Review of Systems Narrative Review of Systems All systems reviewed & are unremarkable except as reviewed in HPI and above Physical exam (Primary Care) Vital Signs: Last Vital Signs Temp 98.8 F 07/09/25 08:20 Pulse 101 H 07/09/25 08:20 Resp 18 07/09/25 08:20 BP 154/90 H 07/09/25 08:20 Pulse Ox 94 07/09/25 08:20 Oxygen Delivery Method Room Air 07/09/25 08:20 Tobacco/Smoking Status: Tobacco use Status Tobacco use date assessed 06/25/25 07/09/25 08:22 Patient Tobacco Use Status Former Tobacco user 07/09/25 08:22 Tobacco use type Cigarette 07/09/25 08:22 e-Cigarette/Vaping Use Never Used 07/09/25 08:22 Thrive Assessment: Date of Thrive Assessment Date Thrive assessed 06/25/25 07/09/25 08:22 Narrative Physical Exam General: +Alert and oriented, Well nourished, No acute distress. Eye: Pupils are equal, round and reactive to light, Intact accommodation, Extraocular movements are intact, Normal conjunctiva, Vision unchanged. HENT: Normocephalic, Atraumatic, Tympanic membranes are clear, Normal hearing, Oral mucosa is moist, No pharyngeal erythema, Ear canals patent. Respiratory: Lungs CTA bilaterally, No wheeze, Respirations are non-labored. Cardiovascular: Regular rate, Regular rhythm, S1 auscultated, S2 auscultated, No murmur, Good pulses equal in all extremities, Normal peripheral perfusion, No edema. Gastrointestinal: Soft, Non-tender, Non-distended, Normal bowel sounds, No organomegaly. Musculoskeletal: Normal range of motion, Normal strength, No tenderness, No swelling, No deformity, Normal gait. Integumentary: Warm, Dry, [place], Intact. Neurologic: Alert, Oriented, Normal sensory, Normal motor function, No focal defects, Cranial Nerves II-XII are grossly intact, Normal deep tendon reflexes. Psychiatric: Cooperative, Appropriate mood & affect, Normal judgment. Coding Level of Care Code Est Pt Level 4 (20871) Complex visit Add On G2211 Diagnoses Essential hypertension I10 Hyperlipidemia, unspecified hyperlipidemia type E78.5 Hyperlipidemia type: unspecified GERD without esophagitis K21.9 Assessment & Plan Assessment & Plan (1) Essential hypertension: Comment: - The patient exhibits persistently elevated blood pressure readings in the 150s at home, indicating that the current regimen of diltiazem 120 mg is insufficient. - The plan is to increase diltiazem to 240 mg once daily. - The patient will continue to monitor blood pressure at home. Code(s): I10 - Essential (primary) hypertension Category: Medical (2) Hyperlipidemia, unspecified: Comment: - Recent lab results show very high LDL cholesterol of 185 mg/dL and total cholesterol of 287 mg/dL, indicating inadequate control with atorvastatin 10 mg. - The plan is to increase atorvastatin to 20 mg daily. - The patient was also counseled on dietary moderation of red meat, butter, and carbohydrates. Code(s): E78.5 - Hyperlipidemia, unspecified Category: Medical Qualifiers: Hyperlipidemia type: unspecified Qualified Code(s): E78.5 - Hyperlipidemia, unspecified (3) GERD without esophagitis: Comment: - The patient is stable on the current medication. - The plan is to continue omeprazole 20 mg daily. Code(s): K21.9 - Gastro-esophageal reflux disease without esophagitis Category: Medical Plan: Health Maintenance: - Dietary counseling was provided for hyperlipidemia, advising moderation of red meat, butter, and carbohydrates. - The patient is encouraged to continue home blood pressure monitoring. Patient was informed and verbally consented to the use of an ambient scribe for clinic note documentation during this visit. Plan I discussed the patient's persistently high blood pressure readings, noting that the current dose of diltiazem 120 mg is not sufficient. I explained the potential internal damage, such as to the kidneys, that can be caused by uncontrolled hypertension. Instead of adding a new medication, I recommended increasing the diltiazem to 240 mg daily to improve control while maintaining the same number of pills. I also reviewed the recent lab work, which showed very high LDL cholesterol of 185 mg/dL and total cholesterol of 287 mg/dL. I recommended doubling the atorvastatin dose to 20 mg daily and counseled the patient on the importance of dietary moderation, particularly with red meat and carbohydrates, in conjunction with medication. The patient agreed with the plan. I have sent the updated prescriptions to the pharmacy and scheduled a follow-up appointment in 3 weeks to assess the effectiveness of these changes. Medications: New diltiazem HCl CD (Cartia XT) 240 mg PO DAILY 30 caps 0RF atorvastatin (Lipitor) 20 mg PO BEDTIME 90 tabs 3RF Discontinued atorvastatin Discontinued Reason: Doctor's Order 10 mg PO DAILY 90 days 90 tabs 3RF diltiazem HCl CD Discontinued Reason: Doctor's Order 120 mg PO DAILY 90 caps 3RF Patient Instructions: - Increase your Diltiazem dose to 240 mg and take one pill by mouth every morning. - Increase your Atorvastatin dose to 20 mg and take one pill by mouth every night. - Continue taking Omeprazole 20 mg as you have been. - Continue checking your blood pressure at home. - Try to eat healthier by reducing your intake of red meat, butter, and carbohydrates. - You have a follow-up appointment in 3 weeks.
[2025-07-09 08:20] VITALS: BP 154/90; PULSE 101; RESP 18; TEMP 37.1; O2SAT 94
--- OUTSIDE RECORDS SUMMARY | 2025-07-09 08:21 | XMS_ITS | Data Portability ---
Author Organization [facility], [facility] Address [address] [place] [address] Assessment Encounter Date Assessment Date Assessment LastModified [...] follow-up on a p.r.n. basis. Speech recognition after school program teacher software was used to create portions of [...] Details Recorded Time Right patellar tendon rupture [id number] 02 Active 2023 JAZMIN cain [place] - [facility] 17:36:48 Problem Notes None recorded. Medical [...] Updated DateTime 12/01/2023 177.8 cm 29.4 kg/m2 44323.44 g JAZMIN DURAN [place] - [facility] 12/01/2023 08:41:19 Social History None recorded. Functional Status None recorded. Mental Status None recorded. Family History Nothing Reported. Medical History No medical history recorded. Past Encounters Encounter ID Performer Location Encounter Start Date Encounter Closed Date Diagnosis/Indication Diagnosis SNOMED-CT Code Diagnosis ICD10 Code Diagnosis IMO Codes Diagnosis Note [id number] MD Hang Gallegos [address] [place] [address] 12/01/2023 08:09:12 12/22/2023 15:53:33 Right patellar tendon rupture [id number] S76.111D Health Concerns Section Related Observation LastModified by Organization Detai ls LastModified Time None Recorded Concern Status LastModified by Organization Details LastModified Time None Recorded Advance Directives Directive None Recorded Payers Insurance Date Sequence Insurance Name Policy Number Policy Camacho Covered Member ID Camacho Member ID Guarantor Name 12/22/2023 1 [facility] (PPO) [id number] 3 Heriberto Knox [id number] Heriberto Knox
== END 2025-07-09 08:45 | disposition home or self-care (01) ==
PROVIDERS: PCP Student in an Organized Health Care Education/Training Program; Visit Provider Student in an Organized Health Care Education/Training Program
DX: I10 Essential (primary) hypertension (principal); E78.5 Hyperlipidemia, unspecified; K21.9 Gastro-esophageal reflux disease without esophagitis

== ENCOUNTER 2025-07-30 07:51 | Outpatient (AMB) | payer OTHER, SELFPAY ==
--- OUTSIDE RECORDS SUMMARY | 2024-08-28 02:30 | XMS_ITS ---
Author Organization [facility] Address [address] [place] [address] Care Team Providers Care Erp Engineer Name Role Phone Sada (RETIRED) Greg HATFIELD Primary Care Provide r Gibson Baird Jr REASON FOR VISIT screening Encounters Encounter Location Date Provider Diagnosis [facility] [place] [address] [place] [phone] 08/28/2024 Gibson Crane Jr Colon cancer screening Z12.11 and Colon polyps K63.5 Assessments Encounter Date Diagnosis (ICD Code) Assessment Notes Treatment Notes Treatment Clinical Notes Section Notes 08/28/2024 Colon cancer screening (ICD-10 - Z12.11) 08/28/2024 Colon polyps (ICD-10 - K63.5) Plan Of Treatment No Information Progress Notes * ESTRELLA SAWYER DDOB: [birth year] (59 yo M)Acc No.[id number]:08/28/2024 COLON WITH MAC Patient: ESTRELLA GILBERT Provider: Myranda Crane MD :1965 A ge:58 Y S ex:Male Date:08/28/2024 Address:[address] [facility] Pcp:Greg Tomlin (RETIRED )MD Subjective: * Chief Complaints: * S creening Assessment: * Assessment: 1. C olon cancer screening - Z12.11 (Primary) 2 . C olon polyps - K63.5? Plan: * Procedure Codes: 4 5385 LESION REMOVAL [id number] COLONOSCOPY AND BIOPSY, Modifiers: 59 Billing Information: * Procedure Codes: 40093 LESION REMOVAL COLONOSCOPY. 71508 COLONOSCOPY AND BIOPSY. Modifiers: 59 * The named appointment provid er may or may not be the originator of this progress note, and it is not deemed complete until electronically signed by the appointment provider. Sign off status: Pending * Provider: Myranda Crane MD Date: 0 08/28/2024 Generated for John zaragoza/Christiano/Demetriusitting on: 1 09/30/2024 07:57 AM EST
--- NOTE | 2025-07-30 07:54 | A.OFFPC_ITS ---
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 His blood pressure has been in the 130s-140s at home, and the goal is to bring it below 130. His in-office blood pressure was 160/90 mmHg, which he notes is higher than his home readings and attributes to nervousness. The patient is taking atorvastatin and reports no side effects. He also takes omeprazole for acid reflux. He denies nausea or vomiting. 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 - Residence: He recently moved to [facility] from [place]. [facility] Medical History (Updated 07/30/25 @ 08:10 by Jakob Quintanilla MD) GERD without esophagitis Annual physical exam GERD (gastroesophageal reflux disease) Hx of deep venous thrombosis Retrognathia Obesity SANTO (obstructive sleep apnea) Hyperlipidemia, unspecified Essential hypertension Surgical History (Updated 06/24/25 @ 15:31 by Marion Zhao) History of colonoscopy (~08/28/24) H/O right knee surgery (2022) Family History Mother No problems noted. Father ALS (amyotrophic lateral sclerosis) Social History Housing: House Are you a primary home care provider to a significant other at home: No Do you presently have visiting nurse or other home services: No Alcohol intake: current Alcohol intake frequency: a few times a week Alcohol type: beer and wine Patient Tobacco Use Status: Former Tobacco user Tobacco use type: Cigarette Years Smoked: 15 +/- e-Cigarette/Vaping Use: Never Used Second Hand Smoke Exposure: No service: No Current occupational status: employed Current occupation: [employer] Questionnaire Thrive Questionnaire Date Thrive assessed: 06/25/25 STEVE-7 AMB Questionnaire STEVE-7 Date STEVE - 7 assessed: 06/25/25 Source: Developed by Drs. Kailash Esposito, Angela Loyola, Moise Ma and colleagues, with an educational alonso from [employer]. Review of Systems Narrative Review of Systems - General: Denies feeling unwell. - Gastrointestinal: Denies nausea or vomiting. All systems reviewed & are unremarkable except as reviewed in HPI and above Physical exam (Primary Care) Vital Signs: Last Vital Signs Temp 99.2 F 07/30/25 07:58 Pulse 72 07/30/25 07:58 BP 162/90 H 07/30/25 07:58 Pulse Ox 97 07/30/25 07:58 Oxygen Delivery Method Room Air 07/30/25 07:58 BMI result Body Mass Index 32.7 Tobacco/Smoking Status: Tobacco use Status Tobacco use date assessed 06/25/25 07/30/25 07:55 Patient Tobacco Use Status Former Tobacco user 07/30/25 07:55 Tobacco use type Cigarette 07/30/25 07:55 e-Cigarette/Vaping Use Never Used 07/30/25 07:55 Thrive Assessment: Date of Thrive Assessment Date Thrive assessed 06/25/25 07/30/25 07:55 Narrative Physical Exam General: +Alert and oriented, Well nourished, No acute distress. Eye: Pupils are equal, round and reactive to light, Intact accommodation, Extraocular movements are intact, Normal conjunctiva, Vision unchanged. HENT: Normocephalic, Atraumatic, Tympanic membranes are clear, Normal hearing, Oral mucosa is moist, No pharyngeal erythema, Ear canals patent. Respiratory: Lungs CTA bilaterally, No wheeze, Respirations are non-labored. Cardiovascular: Regular rate, Regular rhythm, S1 auscultated, S2 auscultated, No murmur, Good pulses equal in all extremities, Normal peripheral perfusion, No edema. Gastrointestinal: Soft, Non-tender, Non-distended, Normal bowel sounds, No organomegaly. Musculoskeletal: Normal range of motion, Normal strength, No tenderness, No swelling, No deformity, Normal gait. Integumentary: Warm, Dry, [place], Intact. Neurologic: Alert, Oriented, Normal sensory, Normal motor function, No focal defects, Cranial Nerves II-XII are grossly intact, Normal deep tendon reflexes. Psychiatric: Cooperative, Appropriate mood & affect, Normal judgment. Coding Level of Care Code Est Pt Level 4 (34982) Add On Problem Visit Only Diagnoses Essential hypertension I10 Hyperlipidemia, unspecified hyperlipidemia type E78.5 Hyperlipidemia type: unspecified GERD without esophagitis K21.9 Assessment & Plan Assessment & Plan (1) Essential hypertension: Comment: - The patient's blood pressure remains elevated, with home readings in the 130s- 140s and an in-office reading of 160/90 mmHg. - The goal is to achieve a blood pressure below 130. - We will increase the diltiazem dose to 360 mg daily. - The plan is to maximize this single medication before considering adding another to minimize pill burden. - The patient was instructed to monitor his blood pressure two to three times per week at home. Code(s): I10 - Essential (primary) hypertension Category: Medical (2) Hyperlipidemia, unspecified: Comment: - He reports no side effects from atorvastatin. - We will continue atorvastatin 20 mg daily. Code(s): E78.5 - Hyperlipidemia, unspecified Category: Medical Qualifiers: Hyperlipidemia type: unspecified Qualified Code(s): E78.5 - Hyperlipidemia, unspecified (3) GERD without esophagitis: Comment: - He will continue taking omeprazole 20 mg daily. Code(s): K21.9 - Gastro-esophageal reflux disease without esophagitis Category: Medical Plan: Health Maintenance: - The patient was advised to monitor his blood pressure regularly, specifically two to three times a week, to stay on top of his health. Patient was informed and verbally consented to the use of an ambient scribe for clinic note documentation during this visit. Plan I discussed the patient's elevated blood pressure readings with him. Although his home readings are better, they remain on the higher end, and the goal is to get his pressure below 130 to minimize long-term problems. I explained my rationale for increasing his diltiazem dose to 360 mg, which is to maximize the benefit of one medication before adding a second, thereby reducing his pill burden. I informed him that the primary side effect of this change would be lowering his blood pressure. I also acknowledged that in-office blood pressure can be high due to nervousness. I instructed him to continue monitoring his pres sure at home two to three times a week to stay informed about his status. We will continue his current atorvastatin and omeprazole. We will see him back in three months for re-evaluation. Medications: New diltiazem HCl ER (Tiazac) 360 mg PO DAILY 90 caps 0RF Discontinued diltiazem HCl CD (Cartia XT) Discontinued Reason: Doctor's Order 240 mg PO DAILY 30 caps 0RF Patient Instructions: - Your dose of diltiazem is being increased to 360 mg. Continue to take it as prescribed. - Continue taking your atorvastatin 20 mg and omeprazole 20 mg as directed. - Check your blood pressure at home two to three times a week and keep a log of the readings. - You do not need to come back for a check-in before your next scheduled appointment. - Your next follow-up appointment will be in three months.
[2025-07-30 07:58] VITALS: BP 162/90; PULSE 72; TEMP 37.3; O2SAT 97; BMI 32.7
--- OUTSIDE RECORDS SUMMARY | 2025-07-30 07:58 | XMS_ITS | Patient Health Record ---
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 Name Role Phone Sada (RETIRED) Greg HATFIELD Primary Care Provide r Gibson Baird Jr Unavailable Allergies No Known Allergies Results Component Value Reference Range Notes Pathology Reviewed date:09/05/2024 07:50:45 AM Interpretation: Performing Lab:[facility], [address] [place] [id number] Notes/Report: Reason For Referral No Information Medications [...] Status Risk Notes Problem Colon cancer screening (951769905) Colon cancer screening (Z12.11) Active confirmed Problem Long-term current use of anticoagulant ([id number]) technician terminal and repeater (current) use of anticoagulants (Z79.01) Active confirmed Encounters Encounter Location Date Provider Diagnosis [facility] Outpatient [address] [place], [place] [phone] 08/28/2024 Gibson Crane Jr Colon cancer screening Z12.11 and Colon polyps K63.5 [facility] [address] [place] [address] 09/05/2024 Gibson Crane Jr Assessments Encounter Date [...] Insured Coverage Start Date Coverage End Date [facility] Insurance ([employer]) [address] [place] [address] [id number] ESTRELLA SAWYER Self - patient is the insured Medical (General) History Medical History History ICD Code Deep venous thrombosis Gastroesophageal reflux disease Hypertension Hyperlipidemia PVCs SANTO Surgical History Surgery Date(Month/Year) Right patellar tendon repair 2022 Hospitalization History Reason Date(Month/Year) DVT 03/06
--- OUTSIDE RECORDS SUMMARY | 2025-07-30 07:58 | XMS_ITS | Data Portability ---
Author Organization [facility], [facility] Address [address] [place] [address] Assessment Encounter Date Assessment Date Assessment LastModified [...] follow-up on a p.r.n. basis. Speech recognition inside solar sales consultant software was used to create portions of [...] Details Recorded Time Right patellar tendon rupture [id number] 02 Active 2023 JAZMIN cain [place] - [facility] 17:36:48 Problem Notes None recorded. Medical Equipment [...] Updated DateTime 12/01/2023 177.8 cm 29.4 kg/m2 23307.44 g JAZMIN DURAN [place] - [facility] 12/01/2023 08:41:19 Social History None recorded. Functional Status None recorded. Mental Status None recorded. Family History Nothing Reported. Medical History No medical history recorded. Past Encounters Encounter ID Performer Location Encounter Start Date Encounter Closed Date Diagnosis/Indication Diagnosis SNOMED-CT Code Diagnosis ICD10 Code Diagnosis IMO Codes Diagnosis Note [id number] MD Hang Gallegos [address] [place] [address] 12/01/2023 08:09:12 12/22/2023 15:53:33 Right patellar tendon rupture [id number] S76.111D Health Concerns Section Related Observation LastModified by Organization Detai ls LastModified Time None Recorded Concern Status LastModified by Organization Details LastModified Time None Recorded Advance Directives Directive None Recorded Payers Insurance Date Sequence Insurance Name Policy Number Policy Camacho Covered Member ID Camacho Member ID Guarantor Name 12/22/2023 1 [facility] (PPO) [id number] 3 Heriberto Knox [id number] Heriberto Knox
== END 2025-07-30 08:09 | disposition home or self-care (01) ==
LOC: HO.HMCHD 07:51
PROVIDERS: PCP Student in an Organized Health Care Education/Training Program; Visit Provider Student in an Organized Health Care Education/Training Program
DX: I10 Essential (primary) hypertension (principal); E78.5 Hyperlipidemia, unspecified; K21.9 Gastro-esophageal reflux disease without esophagitis